=== PATIENT | male | born 1955 | race Caucasian/White ===

== ENCOUNTER → 2021-05-14 08:40 | Outpatient (BNVA) | payer SELFPAY | PROVIDERS: Family Provider Nurse Practitioner; Visit Provider Nurse Practitioner | DX: Z01.89 Encounter for other specified special examinations (principal) ==

== ENCOUNTER → 2021-11-05 08:41 | Outpatient (BNVA) | payer SELFPAY | PROVIDERS: Family Provider Nurse Practitioner; PCP Nurse Practitioner; Visit Provider Dermatology | DX: Z01.89 Encounter for other specified special examinations (principal) ==

== ENCOUNTER → 2022-05-06 08:10 | Outpatient (BNVA) | payer SELFPAY | PROVIDERS: Family Provider Nurse Practitioner; PCP Dermatology; Visit Provider Dermatology | DX: Z01.89 Encounter for other specified special examinations (principal) ==

== ENCOUNTER → 2022-08-05 07:58 | Outpatient (BNVA) | payer SELFPAY | PROVIDERS: Family Provider Nurse Practitioner; PCP Nurse Practitioner; Referring Provider Dermatology; Visit Provider Dermatology | DX: Z01.89 Encounter for other specified special examinations (principal) ==

== ENCOUNTER → 2022-11-04 08:14 | Outpatient (BNVA) | payer SELFPAY | PROVIDERS: Family Provider Nurse Practitioner; PCP Nurse Practitioner; Referring Provider Dermatology; Visit Provider Dermatology | DX: Z01.89 Encounter for other specified special examinations (principal) ==

== ENCOUNTER 2023-01-30 09:45 | Outpatient (CLI) | payer MEDICARE, OTHER, SELFPAY ==
--- NOTE | 2023-01-30 10:45 | CT_ITS ---
WS: [id number] LDCT LUNG CANCER SCREENING TECHNIQUE: Noncontrast CT of the chest with coronal and sagittal reformatted images. CLINICAL INFORMATION: Z87.891 - Personal history of nicotine dependence COMPARISON: None. DLP: 81.51 mGy.cm DIvol: Mean CTDIvol: 1.60 (mGy) All CT scans at [facility] use at least one of these dose optimization techniques: automat ed exposure control; mA and/or kV adjustment per patient size (includes targeted exams where dose is matched to clinical indication); or iterative reconstruction. FINDINGS: Tiny noncalcified 3 mm nodule LEFT upper lobe. Aortic calcification. Coronary calcification. Normal thyroid gland. Numerous slightly prominent media stinal lymph nodes. Calcified subcarinal lymph nodes. Numerous prominent axillary lymph nodes bilate rally nonspecific. Adrenal glands are normal. Hepatomegaly and splenomegaly. Small esophageal hiatal hernia. Cholelithia sis. Retrocrural enlarged lymph nodes. Small esophageal hiatal hernia. A few calcified granulomas. No acute pulmonary infiltrates. Partially visualized suggestion of enlarged lymph nodes in the upper ab domen. CT/CT lung screening [id number] IMPRESSION: Enlarged bilateral axillary with numerous prominent anterior medias tinal lymph nodes. Partially visualized prominent lymph nodes in the lower neck . Enlarged retrocrural lymph nodes and partially visualized lymphadenopathy upp er abdomen. Findings are nonspecific but neoplasm not excluded. Recommend furth er evaluation with contrast enhanced CT chest abdomen pelvis and recommend juliana elation with history of malignancy. Consider lymphoma. LUNG-RADS: 2S-Benign Appearance or Behavior with Significant Findings FOLLOW UP: 12 Month: Continue annual screening with LDCT
== END 2023-01-30 09:46 | disposition home or self-care (01) ==
PROVIDERS: PCP Nurse Practitioner; Visit Provider Nurse Practitioner
DX: Z12.2 Encounter for screening for malignant neoplasm of respiratory organs (principal); Z87.891 Personal history of nicotine dependence
CPT/HCPCS: 71271

== ENCOUNTER 2023-02-26 06:34 | Outpatient (CLI) | payer MEDICARE, OTHER, SELFPAY ==
[2023-02-26] MEDS: iohexol 350 mg/mL 100 mL Btl PO (07:14)
[2023-02-26] MEDS: iohexol 350 mg/mL 500 mL Btl (per mL) IV (07:41)
--- NOTE | 2023-02-26 08:00 | CTR_ITS ---
PROCEDURE INFORMATION: Exam: CT Chest With Contrast; Diagnostic Exam date and time: 02/26/2023 7:53 AM Age: 67 years old Clinical indication: Abnormal findings; Abnormal radiologic finding of the abdomen; Radiologic exam and body structure: CT lung screening [id number] 01/30/23; Other: Enlarged lymph nodes; Patient HX: F/u from lung screen with enlarged axillary and mediastinal lymph nodes. ; Additional info: R93.89 - abnormal findings on diagnostic imaging of other. . . TECHNIQUE: Imaging protocol: Diagnostic computed tomography of the chest with contrast. Radiation optimization: All CT scans at this facility use at least one of these dose optimization techniques: automated exposure control; mA and/or kV adjustment per patient size (includes targeted exams where dose is matched to clinical indication); or iterative reconstruction. Contrast material: OMNI 350; Contrast volume: 100 ml; Contrast route: INTRAVENOUS (IV); REPORTING DATA: Count of CT and Cardiac NM exams in prior 12 months: This patient has received [address] and 0 known cardiac nuclear medicine studies in the 12 months prior to the current study. COMPARISON: CT lung screening [id number] 01/30/2023 9:57 AM RADIATION DOSE METRICS: Total DLP (mGy-cm): 977.88 FINDINGS: Trachea: The trachea is midline. Lungs: Normal lung volumes. Unchanged right apical small calcified granulomas are seen. Unchanged minimal left apical pleuroparenchymal scarring is seen. No regions of consolidation or ground-glass opacity. No interlobular septal thickening or honeycombing seen to suggest interstitial lung disease on CT. Unchanged 0.3 x 0.3 cm left upper lobe noncalcified nodule (series 4, image 23). Recommend follow-up per Fleischner society recommendations. Pleural spaces: No pneumothorax. No pleural effusion. Heart: The heart size is normal. Severe coronary arterial atherosclerotic vascular calcifications are seen. No pericardial effusion. Lymph nodes: Some unchanged subcentimeter prominent prevascular lymph nodes are seen. Unchanged subcentimeter pretracheal and right paratracheal lymph nodes are seen. Calcified subcarinal and left hilar lymph nodes are seen, representing old granulomatous disease. Enlarged right hilar 1.3 x 1.6 cm lymph node. Enlarged bilateral axillary lymph nodes are seen, the largest measuring 1.8 x 1.3 cm. Prominent left subpectoral lymph nodes are seen. Vasculature: Unremarkable. No aortic aneurysm. Bones/joints: No acute osseous abnormality seen. Soft tissues: Unremarkable. REFERENCES: For patients at low risk (minimal or absent history of smoking and of other known risk factors), no routine follow-up is indicated. For patients at high risk (history of smoking or of other known risk factors), consider optional CT Chest at 12 months. (Reference: Amadou) PROCEDURE INFORMATION: Exam: CT Abdomen And Pelvis With Contrast Exam date and time: 02/26/2023 7:53 AM Age: 67 years old Clinical indication: Abnormal findings; Abnormal radiologic finding of the abdomen; Radiologic exam and body structure: CT lung screening [id number] 01/30/23; Other: Enlarged lymph nodes; Patient HX: F/u from lung screen with enlarged axillary and mediastinal lymph nodes. ; Additional info: R93.89 - abnormal findings on diagnostic imaging of other. . . TECHNIQUE: Imaging protocol: Computed tomography of the abdomen and pelvis with contrast. Radiation optimization: All CT scans at this facility use at least one of these dose optimization techniques: automated exposure control; mA and/or kV adjustment per patient size (includes targeted exams where dose is matched to clinical indication); or iterative reconstruction. Contrast material: OMNI 350; Contrast volume: 100 ml; Contrast route: INTRAVENOUS (IV); REPORTING DATA: Count of CT and Cardiac NM exams in prior 12 months: This patient has received [address] and 0 known cardiac nuclear medicine studies in the 12 months prior to the current study. COMPARISON: CT lung screening [id number] 01/30/2023 9:57 AM RADIATION DOSE METRICS: Total DLP (mGy-cm): 977.88 FINDINGS: Liver: Normal liver attenuation. Unchanged caudal right hepatic lobe/segment VII subcapsular low-attenuation 0.5 x 0.7 cm lesion is seen. No further follow-up is necessary per ACR recommendations. No mass. Gallbladder and bile ducts: Gallbladder not distended 1.6 x 1 cm calcified gallstone. No biliary ductal dilatation. Pancreas: Unremarkable CT appearance of the pancreatic parenchyma. No ductal dilatation. Spleen: There is splenomegaly with the spleen measuring 19 cm in length. The parenchyma appears normal.Some punctate calcified granulomas are seen. Adrenal glands: Normal CT appearance of the adrenals. No mass. Kidneys and ureters: Normal enhancement of the kidneys. Right kidney lower pole exophytic simple 1.3 x 1.2 cm cyst. Some other 0.2-0.5 cm bilateral renal cysts incidentally seen. Right kidney lower pole 0.4 x 0.2 cm calculus. Left kidney mid zone 0.1 x 0.2 cm calculi. Dilated bilateral renal pelves. No ureterectasis or ureteral calculi. Stomach and bowel: The contrast filled stomach is not completely distended with relative mild to moderate gastric body fold prominence. Tiny hiatal hernia is seen. The contrast opacified small bowel loops appear unremarkable. The noncontrast opacified loops of colon show mild to moderate constipation. Colonic diverticulosis is seen, severe in the sigmoid colon region. No CT evidence of diverticulitis. Appendix: No CT evidence of appendicitis. Intraperitoneal space: No abdominal ascites. No free air. Some benign phleboliths seen in the pelvis. Vasculature: Moderate to severe atherosclerotic vascular calcifications with calcifications at the origins of the mesenteric and renal arteries. Mild bilateral renal artery stenoses. Patent mesenteric arteries. [id number] bilateral iliac region stenoses. Assessment limited. The inferior vena cava and portal vein regions appear unremarkable. Patent splenic vein is seen. Lymph nodes: Enlarged gastrohepatic ligament, celiac axis, periportal, aortocaval, left para-aortic and mesentery lymph nodes are seen. The largest lymph node measures 1.5 x 2.9 cm (series 5, images 24 to 38). Enlarged iliac chain lymph nodes are also seen, the largest measuring 1 x 1 cm. Enlarged bilateral inguinal lymph nodes are seen, the largest measuring 1.5 x 1 cm. Urinary bladder: No bladder debris. No wall thickening. Reproductive: The prostate demonstrates mild nonspecific enlargement. The seminal vesicles are normal. Recommend correlation with clinical exam findings and PSA level assessment. Bones/joints: No acute osseous abnormality seen. Small degenerative osteophytes of the lumbar spine are seen. Moderate bilateral sacroiliac joint and mild symphysis pubis degenerative changes. Soft tissues: Unremarkable. CT/CT chest abdpel w/*[id number] IMPRESSION: 1. Enlarged right hilar lymph node with some nonspecific prominent mediastinal lymph nodes. Enlarged axillary lymph nodes. 2. Unchanged 0.3 x 0.3 cm left upper lobe noncalcified nodule. Recommend follow-up per Fleischner society recommendations. 3. Severe coronary arterial atherosclerotic vascular calcifications. IMPRESSION: 1. Marked splenomegaly, as noted above. 2. Extensive abdominal and pelvic lymphadenopathy, as noted above. Recommend correlation with clinical history. This can be seen with lymphoma, leukemia or metastatic disease. 3. Gallstone. 4. Punctate bilateral intrarenal calculi. No ureteral calculi seen. 5. Other chronic findings, as noted above. COMMENTS: Consistent with the [employer]'s Incidental Findings Committee white paper (J Am Berenice Radiol 2018): Any incidental renal lesion less than 1 cm or classified as too small to characterize, or any incidental cystic renal lesion characterized as simple-appearing, is likely benign. No follow-up imaging is recommended for these lesions per consensus recommendations based on imaging criteria.
== END 2023-02-26 06:35 | disposition home or self-care (01) ==
LOC: RAD 06:36
PROVIDERS: PCP Nurse Practitioner; Visit Provider Nurse Practitioner
DX: R93.89 Abnormal findings on diagnostic imaging of other specified body structures (principal); K80.20 Calculus of gallbladder without cholecystitis without obstruction; R16.1 Splenomegaly, not elsewhere classified; N20.0 Calculus of kidney; R59.1 Generalized enlarged lymph nodes
CPT/HCPCS: 71260; 74177; Q9967

== ENCOUNTER 2023-03-27 07:17 | Outpatient (CLI) | payer MEDICARE, OTHER, SELFPAY ==
--- NOTE | 2023-03-27 08:30 | US_ITS ---
WS: [id number] ULTRASOUND-GUIDED RIGHT INGUINAL LYMPH NODE BIOPSY CLINICAL INFORMATION: R59.9 - Enlarged lymph nodes, unspecified COMPARISON: February 26, 2023 FINDINGS: The procedure including risks, benefits, and complications were discussed with the patient who agreed to proceed. Using sterile technique patient was prepped and draped in the usual sterile fashion. Aft er 1% lidocaine utilizing real-time ultrasound guidance [id number] cores with a Temno needle were ob tained. These samples were somewhat sparse therefore 14-gauge achieve needle was selected. Next four 14-gauge cores were obtained of the RIGHT inguinal lymph node.No immediate complications. Samples we re placed in RPMI and formalin. Patient remained in the ultrasound Suite 10 minutes postprocedure to assess for hematoma and bleeding . No significant hematoma or active bleeding at 10 to 15 minutes. US/US biopsy lymph node [id number] IMPRESSION: 1. Uncomplicated ultrasound-guided RIGHT inguinal lymph node biopsy. 2. No immediate complications. 3. Pathology is pending.
[2023-03-31 07:27] LABS: Lymphoma Profile (BBPL) See Report
== END 2023-03-27 07:18 | disposition home or self-care (01) ==
LOC: RAD 07:22
PROVIDERS: PCP Nurse Practitioner; Visit Provider Nurse Practitioner
DX: R59.9 Enlarged lymph nodes, unspecified (principal)
CPT/HCPCS: 38505; 76942; 88184; 88185; 88305; 88342

== ENCOUNTER → 2023-04-02 10:19 | Outpatient (BNVA) | payer MEDICARE, OTHER, SELFPAY | PROVIDERS: PCP Nurse Practitioner; Visit Provider Internal Medicine Cardiovascular Disease | DX: I25.10 Atherosclerotic heart disease of native coronary artery without angina pectoris (principal); I25.84 Coronary atherosclerosis due to calcified coronary lesion; Z78.9 Other specified health status; E78.5 Hyperlipidemia, unspecified; I10 Essential (primary) hypertension; Z87.891 Personal history of nicotine dependence; C85.90 Non-Hodgkin lymphoma, unspecified, unspecified site | CPT/HCPCS: 99203 ==

== ENCOUNTER 2023-04-15 07:32 | Oncology outpatient (recurring) (ONCR) | payer MEDICARE, OTHER, SELFPAY ==
[2023-04-15 08:48] LABS: Basophils % 0.7 %; Eosinophils # 0.1 10^3/uL (0.0-0.8); Eosinophils % 2.4 %; Hematocrit 35.9 % (42.0-52.0); Hemoglobin 11.4 g/dL (11.7-16.6); Lymphocytes # 1.1 10^3/uL (0.8-4.8); Lymphocytes % 26.2 %; Mean Corpuscular HGB Conc 31.8 g/dL (30.0-36.0); Mean Corpuscular Hemoglobin 26.8 pg (28.0-34.0); Mean Corpuscular Volume 84.3 fl (80-94); Mean Platelet Volume 8.5 fL (7.4-10.4); Monocytes # 0.3 10^3/uL (0.2-0.9); Neutrophils # 2.59 10^3/uL (1.8-7.7); Nucleated Red Blood Cells % 0 %; Platelet Count 148 10^3/cmm (130-400); Red Blood Count 4.26 10^6/uL (4.1-5.3); Red Cell Distribution Width 13.4 % (12.1-15.1); White Blood Count 4.1 10^3/uL (4.0-10.0)
[2023-04-15 09:03] LABS: Alanine Aminotransferase 8 U/L (0-41); Albumin Level 4.1 g/dL (3.5-5.2); Alkaline Phosphatase 97 U/L (40-130); Anion Gap 10.5 (5-19); Aspartate Amino Transferase 13 U/L (0-40); Blood Urea Nitrogen 14 mg/dL (8-23); Calcium 9.3 mg/dL (8.5-10.5); Carbon Dioxide 31 mmol/L (22-29); Chloride 104 mmol/L (98-107); Globulin 2.6 g/dL (1.3-4.6); Glucose 90 mg/dL (65-115); LAB Peripheral Smear Sent for Review; Lactate Dehydrogenase 154 U/L (135-225); Osmolality Calculated 292 mOsm/kg (285-295); Potassium 4.5 mmol/L (3.5-5.1); Sodium 141 mmol/L (136-145); Total Bilirubin 0.3 mg/dL (0.15-1.2); Total Protein 6.7 g/dL (6.6-8.7)
[2023-04-15 17:00] LABS: Iron 40 ug/dL (59-158); Percent Saturation 13.4 % (20-50); Total Iron Binding Capacity 298 mcg/dl; Unsaturated Iron Binding 258 ug/dL (112-347)
== END 2023-04-22 23:59 | disposition home or self-care (01) ==
PROVIDERS: PCP Nurse Practitioner; Visit Provider Internal Medicine Medical Oncology
DX: C82.18 Follicular lymphoma grade II, lymph nodes of multiple sites (principal); R16.0 Hepatomegaly, not elsewhere classified; Z87.891 Personal history of nicotine dependence
CPT/HCPCS: 80053; 83540; 83550; 83615; 85025; 99205

== ENCOUNTER → 2023-04-27 08:59 | Outpatient (BNVA) | payer MEDICARE, OTHER, SELFPAY | PROVIDERS: PCP Nurse Practitioner; Visit Provider Nurse Practitioner | DX: E78.5 Hyperlipidemia, unspecified (principal); K58.0 Irritable bowel syndrome with diarrhea; I10 Essential (primary) hypertension; R35.0 Frequency of micturition | CPT/HCPCS: 81000 ==

== ENCOUNTER 2023-05-02 05:40 | Outpatient (CLI) | payer MEDICARE, OTHER, SELFPAY ==
--- NOTE | 2023-05-02 11:30 | PETR_ITS ---
PROCEDURE INFORMATION: Exam: PET/CT Skull Base to Mid-thigh Exam date and time: 05/02/2023 12:53 PM Age: 67 years old Clinical indication: Condition or disease; Primary cancer: Lymphoma; Initial oncological staging assessment; Additional info: Initial staging. History of ultrasound-guided right inguinal lymph node biopsy 03/27/2023. LABS AND CLINICAL REPORTS: Glucose: 124 mg/dl Treatment strategy for malignancy (PET staging): Initial Staging (PI) TECHNIQUE: Imaging protocol: Following at least four-hour fasting and following the injection of radiopharmaceutical, low dose CT images were obtained. Then, PET images were obtained. Attenuation corrected images were constructed using the CT scan. Fused images of PET and CT were reviewed. The standardized uptake values (SUV) reported below are maximum values within a region of interest, expressed in gm/ml. Exam includes orbital meatal line to mid-thigh. Radiopharmaceutical: 11.18 mCi F-18 FDG (Fluorodeoxyglucose), IV. Time of imaging post radiopharmaceutical administration: 1 hour Injection site: Right antecubital COMPARISON: CT chest, abdomen and pelvis 02/26/2023 7:53 AM FINDINGS: Brain: Visualized brain has normal physiologic uptake. Pharynx: Mild uptake in the bilateral palatine tonsillar regions is likely physiologic, SUV max 5.9 on the right and 5.1 on the left. Larynx: No abnormal uptake. Lungs, pleura and trachea: No abnormal uptake. Bilateral pulmonary calcified granulomas are present. Unchanged size of a non radiotracer avid 3 mm left upper lobe nodule on series 3, image 53. Heart: Normal physiologic uptake. Mediastinal space: No abnormal uptake. Liver: No abnormal uptake. Gallbladder and bile ducts: No abnormal uptake. A stone in the gallbladder is noted. Pancreas: No abnormal uptake. Spleen: Moderate similar splenomegaly is noted. Calcified granulomas in the spleen are present. Splenic uptake: SUV max 3.9. Adrenal glands: No abnormal uptake. Kidneys and ureters: Normal physiologic uptake. An exophytic non radiotracer avid simple appearing right renal inferior pole cyst is better characterized on the comparison CT measuring 1.3 cm in diameter. Small calculi in both kidneys are noted. A simple appearing exophytic cyst arises from the inferior pole of the left kidney without uptake, SUV max 2.0. No hydronephrosis. Stomach and bowel: No abnormal uptake. There are scattered colonic diverticula. Urinary bladder: A moderately diffusely thick-walled appearance of the urinary bladder is noted without definite elevated uptake. Assessment of the bladder can be limited by PET-CT. Reproductive: Moderate enlargement of the prostate gland without elevated uptake. Vasculature: No abnormal uptake. Diffuse atherosclerotic changes are noted including within the coronary arteries. Lymph nodes: A radiotracer avid lymph node posterior to the left clavicle measuring 2.3 x 1.1 cm on series 3, image 40 is noted, SUV max 5.9. Mildly prominent bilateral subpectoral and axillary lymph nodes are noted, some of which are radiotracer avid. For example, a dominant left axillary lymph node measures 3.5 x 0.7 cm on series 3, image 56, SUV max 7.4. Scattered mildly prominent mediastinal and right hilar lymph nodes are identified, some of which are radiotracer avid. For example, a lymph node anterior to the proximal right mainstem bronchus measuring approximately 1.4 cm in diameter on series 3, image 59 is noted, SUV max 4.4. Non radiotracer avid calcified left hilar lymph nodes are present. Prominent radiotracer avid lymph nodes within the abdomen are noted involving the retroperitoneal periaortic spaces, nicky hepatis, and portacaval region. For example, a cluster of left periaortic retroperitoneal lymph nodes on series 3, image 100 demonstrates an overall measurement of 4.7 by 1.8 cm, SUV max 6.2. Clustered lymph nodes in the region of the nicky hepatis with an overall measurement of 3.6 x 3.0 cm on series 3, image 97 is noted, SUV max 5.0. Small retrocrural mildly radiotracer avid lymph nodes on the right are noted for example measuring 1.3 x 0.6 cm on series 3, image 94, SUV max 3.2. Several prominent mesenteric lymph nodes are radiotracer avid for example in the anterior left abdomen measuring 3.9 x 2.0 cm on series 3, image 111, SUV max 16.0. Mildly prominent bilateral external iliac chain, inguinal and groin region lymph nodes are identified for example in the right groin region on series 3, image 170 measuring 2.5 x 1.7 cm, SUV max 12.8. These lymph nodes appears similar in size compared with 02/26/2023. Bones/joints: No abnormal uptake in the visualized axial and appendicular skeleton. Mild degenerative changes in the spine are noted. Soft tissues: No abnormal uptake. METRICS: Mediastinal blood pool: SUV max 2.0 Liver uptake: SUV max 3.3 [facility] [id number] IMPRESSION: 1. Lymphadenopathy in the chest, abdomen and pelvis appears similar compared with the prior CT, several of which demonstrate elevated uptake consistent with history of lymphoma. 2. Splenomegaly persists. Uptake in the spleen is slightly greater than that of background liver uptake which may be indicative of diffuse neoplastic involvement. 3. Unchanged non radiotracer avid small left upper lobe nodule. Assessment of small nodules can be limited by PET-CT. 4. Non radiotracer avid simple appearing bilateral renal cysts, better characterized on the comparison CT. 5. A thick-walled appearance of the urinary bladder is noted which may be related to cystitis or benign hypertrophy in the setting of an enlarged prostate gland. 6. Additional nonurgent findings as detailed above.
== END 2023-05-02 05:41 | disposition home or self-care (01) ==
LOC: RAD 05-04 05:40
PROVIDERS: PCP Nurse Practitioner; Visit Provider Internal Medicine Medical Oncology
DX: C82.18 Follicular lymphoma grade II, lymph nodes of multiple sites (principal); R59.1 Generalized enlarged lymph nodes; R16.1 Splenomegaly, not elsewhere classified; R91.1 Solitary pulmonary nodule; Q61.02 Congenital multiple renal cysts; N32.89 Other specified disorders of bladder
CPT/HCPCS: 78815; A9552

== ENCOUNTER 2023-05-27 06:36 | Outpatient (CLI) | payer MEDICARE, OTHER, SELFPAY ==
--- NOTE | 2023-05-27 | ECG_ITS ---
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 Interpretive Statements NAME OF STUDY: LEXISCAN SESTAMIBI STRESS TEST INDICATION: Chest Pain RESULTS TO DR SCRUGGS PROCEDURE: At the baseline, the EKG revealed normal sinus rhythm with a rate of 61 bpm. Right bundle branch block pattern. Normal ST Ts.. The baseline heart was 62 bpm with a blood pressue of 133/67 mm of Hg Lexiscan was infused over a period of 20 seconds. A total of 0.4 milligrams of Lexiscan was infused. The stress phase was continued for a total of 5 minutes. Heart rate at the end of the stress phase was 75 bpm with a blood pressure 120/57 mm of Hg. The EKG at the peak infusion revealed no significant changes. Sestamibi was injected 20 seconds after the Lexiscan infusion. Heart rate at the end of the recovery phase was 65 bpm with a blood pressure of 135/63 mm of Hg. CONCLUSION: 1. No significant EKG changes with the LexiScan infusion 2. No LexiScan induced chest pain or cardiac arrhythmia 3. Normal blood pressure and heart rate response 4. Sestamibi/sestamibi perfusion scan pending; see separate report. Electronically Signed On 05-28-2023 17:58:30 CDT by Edwige Castellanos M.D. [id number]
[2023-05-27 06:40] VITALS: BMI 27.2
--- NOTE | 2023-05-27 06:41 | NMCV_ITS ---
NM renee perf SPECT r/s* [id number] Juan Antonio Deleon Age: 67 Gender: M : 1955 Exam Date: 05/27/2023 07:40 Ordering Phys: Derian Lopez MD ([email or web address]) Technologist: KELLEN Benton Exam Location: [facility] Indications: Chest Pain STRESS TEST [facility] IMAGE PROTOCOL Rest/Stress 1 Lexiscan Day Radiopharmaceutical Dose (mCi) Administration Site Administered by Rest: Tc-99m 10.9 IV KELLEN Benton Sestamibi Stress:Tc-99m 32.9 IV KELLEN Aguilar Sestamibi Rest: 27-May-2023 60 Discovery 630 Stress: 27-May-2023 30 Discovery 630 0.4mg Lexiscan. Images obtained in supine and prone position. SPECT RESULTS Technical Quality: Excellent Raw Data Analysis: Adequate Image Corrections: No attenuation or motion correction applied Summed Stress Score: 4 Summed Rest Score: 3 Summed Difference Score: 1 PERFUSION FINDINGS Small to moderate area of moderately decreased tracer uptake in the mid and apical inferior wall region with a subtle area of reversibility in the mid inferior region FUNCTIONAL RESULTS (calculated via Gated SPECT) Stress Image LV EF (%): 60 Stress EDV (mL):131 TID: 0.85 Stress ESV (mL):52 FUNCTIONAL FINDINGS: Segmental wall motion analysis revealing no gross wall motion normalities IMPRESSIONS 1. Myocardial perfusion imaging revealing small to moderate area of moderately decreased tracer uptake in the inferior wall region with a subtle area of reversibility suggesting myocardial scarring in the distribution of the right coronary artery with a very small area of ischemia. 2. Normal LV ejection fraction 60%. 3. LV wall motion analysis revealing no gross wall motion abnormalities. 4. The LV volume, upper limit of normal No similar previous studies are available for comparison Dr Edwige Castellanos MD [facility] (Electronically Signed) Final Date: 27 May 2023 17:38 S
[2023-05-27] MEDS: regadenoson 0.4 Mg/5 ml Syringe IVP (08:19)
[2023-05-27 08:34] VITALS: BP 132/74; PULSE 72
== END 2023-05-27 06:37 | disposition home or self-care (01) ==
LOC: CDL 06:37
PROVIDERS: PCP Nurse Practitioner; Visit Provider Internal Medicine Cardiovascular Disease
DX: R07.9 Chest pain, unspecified (principal)
CPT/HCPCS: 36415; 78452; 93017; 96374; A9500; J2785

== ENCOUNTER → 2023-06-01 09:15 | Outpatient (BNVA) | payer MEDICARE, OTHER, SELFPAY | PROVIDERS: PCP Nurse Practitioner; Visit Provider Nurse Practitioner Family | DX: K57.92 Diverticulitis of intestine, part unspecified, without perforation or abscess without bleeding (principal); E78.5 Hyperlipidemia, unspecified; R10.31 Right lower quadrant pain; R10.32 Left lower quadrant pain; R19.7 Diarrhea, unspecified; C82.18 Follicular lymphoma grade II, lymph nodes of multiple sites; N40.0 Benign prostatic hyperplasia without lower urinary tract symptoms; I10 Essential (primary) hypertension | CPT/HCPCS: 80053; 80061; 83615 ==

== ENCOUNTER 2023-06-02 10:22 | Oncology outpatient (recurring) (ONCR) | payer MEDICARE, OTHER, SELFPAY | END 2023-06-22 23:59 | disposition home or self-care (01) | PROVIDERS: PCP Nurse Practitioner; Visit Provider Internal Medicine Medical Oncology | DX: C82.18 Follicular lymphoma grade II, lymph nodes of multiple sites (principal) | CPT/HCPCS: 99214 ==

== ENCOUNTER 2023-07-15 14:00 | Oncology outpatient (recurring) (ONCR) | payer MEDICARE, OTHER, SELFPAY ==
[2023-06-30 09:25] VITALS: BP 144/73; PULSE 74; RESP 16; TEMP 36.2; O2SAT 95
[2023-06-30 09:40] LABS: Eosinophils # 0.1 10^3/uL (0.0-0.8); Eosinophils % 2.9 %; Hematocrit 35.5 % (42.0-52.0); Hemoglobin 11.5 g/dL (11.7-16.6); Lymphocytes # 0.9 10^3/uL (0.8-4.8); Lymphocytes % 28.5 %; Mean Corpuscular HGB Conc 32.4 g/dL (30.0-36.0); Mean Corpuscular Hemoglobin 27.3 pg (28.0-34.0); Mean Corpuscular Volume 84.3 fl (80-94); Mean Platelet Volume 8.9 fL (7.4-10.4); Monocytes # 0.2 10^3/uL (0.2-0.9); Monocytes % 6.5 %; Neutrophils # 1.88 10^3/uL (1.8-7.7); Neutrophils % 60.8 %; Nucleated Red Blood Cells % 0 %; Platelet Count 111 10^3/cmm (130-400); Red Blood Count 4.21 10^6/uL (4.1-5.3); Red Cell Distribution Width 13.2 % (12.1-15.1); White Blood Count 3.1 10^3/uL (4.0-10.0)
[2023-06-30 10:09] LABS: Alanine Aminotransferase 6 U/L (0-41); Albumin Level 4.1 g/dL (3.5-5.2); Alkaline Phosphatase 100 U/L (40-130); Anion Gap 13.1 (5-19); Aspartate Amino Transferase 13 U/L (0-40); Blood Urea Nitrogen 18 mg/dL (8-23); Calcium 9.8 mg/dL (8.5-10.5); Carbon Dioxide 31 mmol/L (22-29); Chloride 102 mmol/L (98-107); Globulin 2.6 g/dL (1.3-4.6); Glomerular Filtration Rate 84.7 mL/min (90-130); Glucose 122 mg/dL (65-115); Iron 48 ug/dL (59-158); Lactate Dehydrogenase 134 U/L (135-225); Osmolality Calculated 295 mOsm/kg (285-295); Percent Saturation 16.7 % (20-50); Potassium 5.1 mmol/L (3.5-5.1); Sodium 141 mmol/L (136-145); Total Bilirubin 0.3 mg/dL (0.15-1.2); Total Iron Binding Capacity 287 mcg/dl; Total Protein 6.7 g/dL (6.6-8.7); Unsaturated Iron Binding 239 ug/dL (112-347)
== END 2023-07-23 23:59 | disposition home or self-care (01) ==
PROVIDERS: PCP Nurse Practitioner; Visit Provider Internal Medicine Medical Oncology
DX: Z53.9 Procedure and treatment not carried out, unspecified reason (principal)
CPT/HCPCS: 36415; 80053; 83540; 83550; 83615; 85025; 99214

== ENCOUNTER 2023-08-12 08:11 | Oncology outpatient (recurring) (ONCR) | payer MEDICARE, OTHER, SELFPAY ==
[2023-08-04 10:22] VITALS: BP 132/70; PULSE 64; RESP 16; TEMP 36.3; O2SAT 97
[2023-08-04 10:33] LABS: Basophils % 0.7 %; Eosinophils # 0.1 10^3/uL (0.0-0.8); Eosinophils % 2.1 %; Hematocrit 32.6 % (37-53); Lymphocytes # 0.9 10^3/uL (0.8-4.8); Lymphocytes % 30.8 %; Mean Corpuscular HGB Conc 31.9 g/dL (30-55); Mean Corpuscular Hemoglobin 26.7 pg (27-33); Mean Corpuscular Volume 83.6 fl (82-101); Mean Platelet Volume 8.6 fL (7.4-10.4); Monocytes # 0.2 10^3/uL (0.2-0.9); Monocytes % 7.3 %; Neutrophils # 1.68 10^3/uL (1.8-7.7); Neutrophils % 58.8 %; Nucleated Red Blood Cells % 0 %; Platelet Count 123 10^3/cmm (157-399); Red Cell Distribution Width 13.7 % (12.1-15.1); White Blood Count 2.86 10^3/uL (3.29-11.43)
[2023-08-04 11:03] LABS: Alanine Aminotransferase 9 U/L (0-41); Albumin Level 4.3 g/dL (3.5-5.2); Alkaline Phosphatase 83 U/L (40-130); Anion Gap 12.7 (5-19); Aspartate Amino Transferase 12 U/L (0-40); Blood Urea Nitrogen 16 mg/dL (8-23); Calcium 9.2 mg/dL (8.5-10.5); Carbon Dioxide 31 mmol/L (22-29); Chloride 104 mmol/L (98-107); Globulin 2.4 g/dL (1.3-4.6); Glomerular Filtration Rate 113.2 mL/min (90-130); Glucose 110 mg/dL (65-115); Iron 42 ug/dL (59-158); Lactate Dehydrogenase 118 U/L (135-225); Osmolality Calculated 298 mOsm/kg (285-295); Percent Saturation 14.1 % (20-50); Potassium 4.7 mmol/L (3.5-5.1); Sodium 143 mmol/L (136-145); Total Bilirubin 0.3 mg/dL (0.15-1.2); Total Iron Binding Capacity 296 mcg/dl; Total Protein 6.7 g/dL (6.6-8.7); Unsaturated Iron Binding 254 ug/dL (112-347)
[2023-08-10 08:06] VITALS: BMI 26.2
[2023-08-10 08:27] LABS: Basophils % 0.7 %; Eosinophils # 0.1 10^3/uL (0.0-0.8); Eosinophils % 3.1 %; Hematocrit 34.1 % (37-53); Lymphocytes # 0.8 10^3/uL (0.8-4.8); Lymphocytes % 26.4 %; Mean Corpuscular Hemoglobin 26.8 pg (27-33); Mean Platelet Volume 8.6 fL (7.4-10.4); Monocytes # 0.2 10^3/uL (0.2-0.9); Monocytes % 6.8 %; Neutrophils # 1.83 10^3/uL (1.8-7.7); Neutrophils % 62.7 %; Nucleated Red Blood Cells % 0 %; Platelet Count 129 10^3/cmm (157-399); Red Blood Count 4.06 10^6/uL (3.85-5.65); Red Cell Distribution Width 13.8 % (12.1-15.1); White Blood Count 2.92 10^3/uL (3.29-11.43)
[2023-08-10 08:45] LABS: Alanine Aminotransferase 9 U/L (0-41); Albumin Level 4.2 g/dL (3.5-5.2); Alkaline Phosphatase 94 U/L (40-130); Anion Gap 10.7 (5-19); Aspartate Amino Transferase 14 U/L (0-40); Blood Urea Nitrogen 14 mg/dL (8-23); Carbon Dioxide 30 mmol/L (22-29); Chloride 102 mmol/L (98-107); Globulin 2.4 g/dL (1.3-4.6); Glucose 92 mg/dL (65-115); Lactate Dehydrogenase 133 U/L (135-225); Osmolality Calculated 288 mOsm/kg (285-295); Potassium 3.7 mmol/L (3.5-5.1); Sodium 139 mmol/L (136-145); Total Bilirubin 0.2 mg/dL (0.15-1.2); Total Protein 6.6 g/dL (6.6-8.7)
[2023-08-10] MEDS: sodium chloride 0.9% 250 ML 75 ML IV (08:46)
[2023-08-10] MEDS: ferric carboxy (IVPB) 750 MG in sodium chloride 0.9% (100 ml) 100 ML 345 MG IV (08:56)
[2023-08-11] VITALS (13 sets, daily range): BP systolic 113–158; BP diastolic 56–80; PULSE 51–71; RESP 16–17; TEMP 35.7–36.5; O2SAT 92–97; BMI 26.4
[2023-08-11] MEDS: sodium chloride 0.9% 250 ML 75 ML IV (09:15)
[2023-08-11] MEDS: acetaminophen 325 mg Tablet 650 MG PO (09:18)
[2023-08-11] MEDS: diphenhydrAMINE 50 mg/mL SDV 1mL 25 MG IVP (09:30)
[2023-08-11] MEDS: ondansetron 2 mg/ML SDV 2 mL 8 MG IVP (09:35)
[2023-08-11] MEDS: diphenhydrAMINE 50 mg/mL SDV 1mL IVP (13:06)
[2023-08-11] MEDS: sodium chloride 0.9% 1,000 ML 999 ML IV (13:07)
[2023-08-11] MEDS: methylPREDNISolone sod succ 125 mg SDV IVP (13:11)
[2023-08-12] MEDS: palonosetron 0.25 mg/5 mL SDV IVP (09:46)
[2023-08-12] MEDS: sodium chloride 0.9% 250 ML 75 ML IV (09:46)
[2023-08-12] MEDS: LORazepam 2 mg/mL INJ 1 mL 1 MG IVP (09:55)
[2023-08-12 11:30] VITALS: BP 124/57; PULSE 62; RESP 16; TEMP 35.7; O2SAT 98
[2023-08-13 16:24] LABS: Galactose-alpha-1,3 IgE 0.39 kU/L (<0.10)
[2023-08-14 17:45] LABS: Beef (27) IgE <0.10 kU/L; Beef Class 0; Lamb (F88) IgE <0.10 kU/L; Lamb Class 0; Pork (F26) IgE <0.10 kU/L; Pork Class 0
== END 2023-08-12 23:59 | disposition home or self-care (01) ==
PROVIDERS: PCP Nurse Practitioner; Visit Provider Internal Medicine Medical Oncology
DX: D50.8 Other iron deficiency anemias (principal)
CPT/HCPCS: 36415; 80053; 83540; 83550; 83615; 85025; 86003; 86008; 96365; 96367; 96375; 96409; 96413; 96415; 96417; 99214; J1100; J1200; J1439; J2060; J2405; J2469; J2930; J7030; J7040; J7050; J9034; Q5115

== ENCOUNTER 2023-08-17 08:30 | Oncology outpatient (recurring) (ONCR) | payer MEDICARE, OTHER, SELFPAY ==
[2023-08-17 08:40] VITALS: BP 133/62; PULSE 69; RESP 16; TEMP 36.3; O2SAT 95
[2023-08-17] MEDS: ferric carboxy (IVPB) 750 MG in sodium chloride 0.9% (100 ml) 100 ML 345 MG IV (09:18)
[2023-08-17 09:50] VITALS: BP 108/50; PULSE 61; RESP 16; TEMP 36.3; O2SAT 93
== END 2023-08-22 23:59 | disposition home or self-care (01) ==
PROVIDERS: PCP Nurse Practitioner; Visit Provider Internal Medicine Medical Oncology
DX: D50.8 Other iron deficiency anemias (principal)
CPT/HCPCS: 96365; J1439

== ENCOUNTER 2023-09-08 08:00 | Oncology outpatient (recurring) (ONCR) | payer MEDICARE, OTHER, SELFPAY ==
[2023-08-24 12:58] VITALS: BP 136/64; PULSE 62; TEMP 36.3; O2SAT 96
[2023-08-24 13:14] LABS: Basophils # 0.1 10^3/uL (0.0-0.1); Basophils % 1.1 %; Eosinophils # 0.1 10^3/uL (0.0-0.8); Hematocrit 33.7 % (37-53); Lymphocytes # 0.4 10^3/uL (0.8-4.8); Lymphocytes % 8.8 %; Mean Corpuscular HGB Conc 32.6 g/dL (30-55); Mean Corpuscular Hemoglobin 27.4 pg (27-33); Mean Corpuscular Volume 83.8 fl (82-101); Mean Platelet Volume 8.7 fL (7.4-10.4); Monocytes # 0.4 10^3/uL (0.2-0.9); Monocytes % 8.8 %; Neutrophils % 77.7 %; Nucleated Red Blood Cells % 0 %; Platelet Count 135 10^3/cmm (157-399); Red Blood Count 4.02 10^6/uL (3.85-5.65); Red Cell Distribution Width 15.3 % (12.1-15.1); White Blood Count 4.64 10^3/uL (3.29-11.43)
[2023-08-24 13:38] LABS: Alanine Aminotransferase 9 U/L (0-41); Albumin Level 4.2 g/dL (3.5-5.2); Alkaline Phosphatase 94 U/L (40-130); Anion Gap 10.3 (5-19); Aspartate Amino Transferase 14 U/L (0-40); Blood Urea Nitrogen 14 mg/dL (8-23); Calcium 8.8 mg/dL (8.5-10.5); Carbon Dioxide 30 mmol/L (22-29); Chloride 105 mmol/L (98-107); Globulin 2.3 g/dL (1.3-4.6); Glomerular Filtration Rate 135.2 mL/min (90-130); Glucose 95 mg/dL (65-115); Osmolality Calculated 292 mOsm/kg (285-295); Potassium 4.3 mmol/L (3.5-5.1); Sodium 141 mmol/L (136-145); Total Bilirubin 0.5 mg/dL (0.15-1.2); Total Protein 6.5 g/dL (6.6-8.7)
[2023-08-31 15:00] VITALS: BP 126/66; PULSE 64; RESP 16; TEMP 36.7; O2SAT 98
[2023-08-31 15:41] LABS: Basophils # 0.1 10^3/uL (0.0-0.1); Basophils % 1.6 %; Eosinophils # 0.2 10^3/uL (0.0-0.8); Eosinophils % 4.8 %; Hematocrit 33.6 % (37-53); Lymphocytes # 0.5 10^3/uL (0.8-4.8); Lymphocytes % 14.5 %; Mean Corpuscular HGB Conc 32.7 g/dL (30-55); Mean Corpuscular Volume 85.5 fl (82-101); Monocytes # 0.3 10^3/uL (0.2-0.9); Monocytes % 10.9 %; Neutrophils % 67.6 %; Nucleated Red Blood Cells % 0 %; Platelet Count 155 10^3/cmm (157-399); Red Blood Count 3.93 10^6/uL (3.85-5.65); Red Cell Distribution Width 16.1 % (12.1-15.1); White Blood Count 3.11 10^3/uL (3.29-11.43)
[2023-08-31 16:08] LABS: Alanine Aminotransferase 11 U/L (0-41); Alkaline Phosphatase 84 U/L (40-130); Anion Gap 10.4 (5-19); Aspartate Amino Transferase 12 U/L (0-40); Blood Urea Nitrogen 17 mg/dL (8-23); Calcium 8.5 mg/dL (8.5-10.5); Carbon Dioxide 29 mmol/L (22-29); Chloride 103 mmol/L (98-107); Globulin 2.2 g/dL (1.3-4.6); Glomerular Filtration Rate 113.2 mL/min (90-130); Glucose 106 mg/dL (65-115); Osmolality Calculated 288 mOsm/kg (285-295); Potassium 4.4 mmol/L (3.5-5.1); Sodium 138 mmol/L (136-145); Total Bilirubin 0.4 mg/dL (0.15-1.2); Total Protein 6.2 g/dL (6.6-8.7)
[2023-09-08 08:01] VITALS: BP 135/72; PULSE 71; RESP 16; TEMP 36.3; O2SAT 97
[2023-09-08 08:37] LABS: Basophils % 0.8 %; Eosinophils # 0.2 10^3/uL (0.0-0.8); Eosinophils % 5.6 %; Hematocrit 35.4 % (37-53); Lymphocytes # 0.5 10^3/uL (0.8-4.8); Lymphocytes % 13.1 %; Mean Corpuscular HGB Conc 33.6 g/dL (30-55); Mean Corpuscular Hemoglobin 28.5 pg (27-33); Mean Corpuscular Volume 84.9 fl (82-101); Monocytes # 0.3 10^3/uL (0.2-0.9); Monocytes % 8.9 %; Neutrophils # 2.53 10^3/uL (1.8-7.7); Neutrophils % 70.8 %; Nucleated Red Blood Cells % 0 %; Platelet Count 133 10^3/cmm (157-399); Red Blood Count 4.17 10^6/uL (3.85-5.65); Red Cell Distribution Width 15.9 % (12.1-15.1); White Blood Count 3.58 10^3/uL (3.29-11.43)
[2023-09-08 08:58] LABS: Alanine Aminotransferase 10 U/L (0-41); Albumin Level 4.1 g/dL (3.5-5.2); Alkaline Phosphatase 88 U/L (40-130); Anion Gap 11.3 (5-19); Aspartate Amino Transferase 12 U/L (0-40); Blood Urea Nitrogen 15 mg/dL (8-23); Calcium 8.7 mg/dL (8.5-10.5); Carbon Dioxide 28 mmol/L (22-29); Chloride 106 mmol/L (98-107); Glomerular Filtration Rate 135.2 mL/min (90-130); Glucose 125 mg/dL (65-115); Osmolality Calculated 296 mOsm/kg (285-295); Potassium 3.3 mmol/L (3.5-5.1); Sodium 142 mmol/L (136-145); Total Bilirubin 0.4 mg/dL (0.15-1.2); Total Protein 6.1 g/dL (6.6-8.7)
[2023-09-08] MEDS: acetaminophen 325 mg Tablet 650 MG PO (10:14)
[2023-09-08] MEDS: sodium chloride 0.9% 250 ML 75 ML IV (10:15)
[2023-09-08] MEDS: diphenhydrAMINE 50 mg/mL SDV 1mL 25 MG IVP (10:15)
[2023-09-08] MEDS: ondansetron 2 mg/ML SDV 2 mL 8 MG IVP (10:22)
[2023-09-08 10:45] VITALS: BP 108/56; PULSE 51; TEMP 36.3; O2SAT 98
[2023-09-08 11:15] VITALS: BP 98/48; PULSE 50; RESP 16; TEMP 36.6; O2SAT 99
[2023-09-08 11:33] LABS: Iron 83 ug/dL (59-158); Percent Saturation 33.4 % (20-50); Total Iron Binding Capacity 248 mcg/dl; Unsaturated Iron Binding 165 ug/dL (112-347)
[2023-09-08 11:47] LABS: Ferritin 1032 ng/mL (30-400)
[2023-09-08 11:50] VITALS: BP 116/59; PULSE 55; RESP 16; TEMP 36.4; O2SAT 97
[2023-09-08 15:15] VITALS: BP 125/60; PULSE 59; RESP 16; TEMP 36.2; O2SAT 94
== END 2023-09-08 23:59 | disposition home or self-care (01) ==
PROVIDERS: PCP Nurse Practitioner; Visit Provider Internal Medicine Medical Oncology
DX: Z51.11 Encounter for antineoplastic chemotherapy; C82.28 Follicular lymphoma grade III, unspecified, lymph nodes of multiple sites; D50.8 Other iron deficiency anemias; Z87.891 Personal history of nicotine dependence; C82.18 Follicular lymphoma grade II, lymph nodes of multiple sites
CPT/HCPCS: 36415; 80053; 82728; 83540; 83550; 85025; 96367; 96375; 96413; 96415; 96417; 99214; J1100; J1200; J2405; J7040; J7050; J9034; Q5115

== ENCOUNTER 2023-09-22 10:30 | Oncology outpatient (recurring) (ONCR) | payer MEDICARE, OTHER, SELFPAY ==
[2023-09-09 08:15] VITALS: BP 129/65; PULSE 67; RESP 16; TEMP 36.6; O2SAT 97
[2023-09-09] MEDS: sodium chloride 0.9% 250 ML 75 ML IV (08:36)
[2023-09-09] MEDS: palonosetron 0.25 mg/5 mL SDV IVP (08:46)
[2023-09-09] MEDS: fosaprepitant 150 MG in sodium chloride 0.9% 150 ML 300 MG IV (09:12)
[2023-09-09 11:10] VITALS: BP 118/62; PULSE 57; RESP 16; TEMP 36.4; O2SAT 96
[2023-09-15 10:04] VITALS: BP 120/65; PULSE 65; RESP 16; TEMP 36.5; O2SAT 95
[2023-09-15 10:28] LABS: Basophils % 0.6 %; Eosinophils # 0.2 10^3/uL (0.0-0.8); Eosinophils % 5.1 %; Hematocrit 32.2 % (37-53); Lymphocytes # 0.2 10^3/uL (0.8-4.8); Lymphocytes % 6.9 %; Mean Corpuscular HGB Conc 33.5 g/dL (30-55); Mean Corpuscular Hemoglobin 28.5 pg (27-33); Mean Platelet Volume 8.8 fL (7.4-10.4); Monocytes # 0.4 10^3/uL (0.2-0.9); Monocytes % 10.7 %; Neutrophils # 2.54 10^3/uL (1.8-7.7); Neutrophils % 75.8 %; Nucleated Red Blood Cells % 0 %; Platelet Count 104 10^3/cmm (157-399); Red Blood Count 3.79 10^6/uL (3.85-5.65); Red Cell Distribution Width 15.6 % (12.1-15.1); White Blood Count 3.35 10^3/uL (3.29-11.43)
[2023-09-22 10:40] VITALS: BP 136/67; PULSE 68; RESP 16; TEMP 36.7; O2SAT 98
[2023-09-22 10:47] LABS: Basophils % 0.7 %; Eosinophils # 0.1 10^3/uL (0.0-0.8); Eosinophils % 3.4 %; Lymphocytes # 0.5 10^3/uL (0.8-4.8); Lymphocytes % 17.6 %; Mean Corpuscular HGB Conc 33.8 g/dL (30-55); Mean Corpuscular Volume 85.8 fl (82-101); Mean Platelet Volume 8.8 fL (7.4-10.4); Monocytes # 0.4 10^3/uL (0.2-0.9); Monocytes % 13.5 %; Neutrophils # 1.89 10^3/uL (1.8-7.7); Neutrophils % 63.8 %; Nucleated Red Blood Cells % 0 %; Platelet Count 129 10^3/cmm (157-399); Red Blood Count 3.73 10^6/uL (3.85-5.65); Red Cell Distribution Width 15.3 % (12.1-15.1); White Blood Count 2.96 10^3/uL (3.29-11.43)
== END 2023-09-22 23:59 | disposition home or self-care (01) ==
PROVIDERS: PCP Nurse Practitioner; Visit Provider Internal Medicine Medical Oncology
DX: C82.18 Follicular lymphoma grade II, lymph nodes of multiple sites (principal)
CPT/HCPCS: 36415; 85025; 96367; 96413; J1100; J1453; J2469; J7040; J7050; J9034

== ENCOUNTER 2023-10-06 07:30 | Oncology outpatient (recurring) (ONCR) | payer MEDICARE, OTHER, SELFPAY ==
[2023-09-29 11:03] VITALS: BP 134/72; PULSE 70; RESP 16; TEMP 36.5; O2SAT 96
[2023-09-29 11:13] LABS: Basophils % 1.1 %; Eosinophils # 0.1 10^3/uL (0.0-0.8); Eosinophils % 2.9 %; Hematocrit 31.3 % (37-53); Lymphocytes % 35.9 %; Mean Corpuscular HGB Conc 33.5 g/dL (30-55); Mean Corpuscular Hemoglobin 28.7 pg (27-33); Mean Corpuscular Volume 85.5 fl (82-101); Mean Platelet Volume 8.2 fL (7.4-10.4); Monocytes # 0.3 10^3/uL (0.2-0.9); Monocytes % 11.7 %; Neutrophils # 1.25 10^3/uL (1.8-7.7); Neutrophils % 45.8 %; Nucleated Red Blood Cells % 0 %; Platelet Count 130 10^3/cmm (157-399); Red Blood Count 3.66 10^6/uL (3.85-5.65); Red Cell Distribution Width 14.9 % (12.1-15.1); White Blood Count 2.73 10^3/uL (3.29-11.43)
[2023-10-06 08:15] VITALS: BP 122/59; PULSE 64; RESP 16; TEMP 36.8; O2SAT 97
[2023-10-06 08:22] LABS: Basophils % 0.8 %; Eosinophils # 0.1 10^3/uL (0.0-0.8); Eosinophils % 2.8 %; Hematocrit 31.4 % (37-53); Lymphocytes # 0.9 10^3/uL (0.8-4.8); Lymphocytes % 35.6 %; Mean Corpuscular HGB Conc 33.1 g/dL (30-55); Mean Corpuscular Volume 87.5 fl (82-101); Mean Platelet Volume 8.8 fL (7.4-10.4); Monocytes # 0.2 10^3/uL (0.2-0.9); Monocytes % 7.9 %; Neutrophils # 1.23 10^3/uL (1.8-7.7); Neutrophils % 48.6 %; Nucleated Red Blood Cells % 0 %; Platelet Count 127 10^3/cmm (157-399); Red Blood Count 3.59 10^6/uL (3.85-5.65); Red Cell Distribution Width 14.6 % (12.1-15.1); White Blood Count 2.53 10^3/uL (3.29-11.43)
[2023-10-06 08:44] LABS: Alanine Aminotransferase 12 U/L (0-41); Albumin Level 3.8 g/dL (3.5-5.2); Alkaline Phosphatase 99 U/L (40-130); Anion Gap 11.1 (5-19); Aspartate Amino Transferase 18 U/L (0-40); Blood Urea Nitrogen 11 mg/dL (8-23); Calcium 8.6 mg/dL (8.5-10.5); Carbon Dioxide 29 mmol/L (22-29); Chloride 107 mmol/L (98-107); Globulin 1.9 g/dL (1.3-4.6); Glomerular Filtration Rate 135.2 mL/min (90-130); Glucose 122 mg/dL (65-115); Lactate Dehydrogenase 248 U/L (135-225); Osmolality Calculated 299 mOsm/kg (285-295); Potassium 3.1 mmol/L (3.5-5.1); Sodium 144 mmol/L (136-145); Total Bilirubin 0.5 mg/dL (0.15-1.2); Total Protein 5.7 g/dL (6.6-8.7)
[2023-10-06] MEDS: sodium chlor 0.9% + KCl 40 mEq 40 MEQ/1,000 ML BAG 250 MEQ IV (10:43)
[2023-10-06] MEDS: acetaminophen 325 mg Tablet 650 MG PO (10:46)
[2023-10-06] MEDS: sodium chloride 0.9% 250 ML 75 ML IV (10:47)
[2023-10-06] MEDS: diphenhydrAMINE 50 mg/mL SDV 1mL 25 MG IVP (10:50)
[2023-10-06] MEDS: ondansetron 2 mg/ML SDV 2 mL 8 MG IVP (10:52)
[2023-10-06 11:20] VITALS: BP 113/70; PULSE 52; RESP 16; TEMP 36.4; O2SAT 97
[2023-10-06 11:50] VITALS: BP 130/71; PULSE 56; RESP 16; TEMP 36.6; O2SAT 96
[2023-10-06 12:20] VITALS: BP 119/63; PULSE 59; RESP 16; TEMP 36.6; O2SAT 94
[2023-10-06 12:50] VITALS: BP 134/75; PULSE 78; RESP 16; TEMP 36.6; O2SAT 96
[2023-10-06 15:20] VITALS: BP 144/70; PULSE 60; RESP 16; TEMP 36.3; O2SAT 97
== END 2023-10-06 23:59 | disposition home or self-care (01) ==
PROVIDERS: PCP Nurse Practitioner; Visit Provider Internal Medicine Medical Oncology
DX: C82.18 Follicular lymphoma grade II, lymph nodes of multiple sites (principal); Z51.11 Encounter for antineoplastic chemotherapy; D50.8 Other iron deficiency anemias; Z79.899 Other long term (current) drug therapy; Z87.891 Personal history of nicotine dependence
CPT/HCPCS: 36415; 80053; 83615; 85025; 96365; 96366; 96367; 96375; 96411; 96413; 96415; 99215; J1100; J1200; J2405; J7040; J7050; J9034; Q5115

== ENCOUNTER 2023-10-07 06:00 | Oncology outpatient (recurring) (ONCR) | payer MEDICARE, OTHER, SELFPAY ==
[2023-10-07 08:28] VITALS: BP 142/61; PULSE 64; O2SAT 98
[2023-10-07] MEDS: sodium chloride 0.9% 250 ML 75 ML IV (08:35)
[2023-10-07] MEDS: palonosetron 0.25 mg/5 mL SDV IVP (08:37)
[2023-10-07] MEDS: fosaprepitant 150 MG in sodium chloride 0.9% 150 ML 300 MG IV (09:07)
[2023-10-07 10:01] VITALS: BP 121/51; PULSE 55; O2SAT 95
== END 2023-10-22 23:59 | disposition home or self-care (01) ==
LOC: ONCMED 07:15
PROVIDERS: PCP Nurse Practitioner; Visit Provider Internal Medicine Medical Oncology
DX: C82.18 Follicular lymphoma grade II, lymph nodes of multiple sites (principal); Z51.11 Encounter for antineoplastic chemotherapy
CPT/HCPCS: 96367; 96375; 96413; J1100; J1453; J2469; J7050; J9034

== ENCOUNTER 2023-10-26 09:49 | Outpatient (CLI) | payer MEDICARE, OTHER, SELFPAY ==
--- NOTE | 2023-10-26 10:15 | USCV_ITS ---
Juan Antonio Deleon Age: 67 Gender: M : 1955 Exam Date: 10/26/2023 10:04 Ordering Phys: José Luis Pastor Technologist: Gisel Coto [place] [facility] [place]: murmur BP: 148 / 58 HR: 61 Rhythm: Other Technical Quality: Adequate MEASUREMENTS (Male / Female) Normal Values 2D ECHO LV Diastolic Diameter PLAX 4.7 cm 4.2 - 5.9 / 3.9 - 5.3 cm LV Systolic Diameter PLAX 2.5 cm IVS Diastolic Thickness 1.5 cm 0.6 - 1.0 / 0.6 - 0.9 cm IVS Systolic Thickness 2.1 cm LVPW Diastolic Thickness 1.2 cm 0.6 - 1.0 / 0.6 - 0.9 cm LVPW Systolic Thickness 1.6 cm LVOT Diameter 2.0 cm LV Ejection Fraction 2D Teich 77.5 % LV Ejection Fraction MOD 2C 60.4 % LV Ejection Fraction 2C AL 60.6 % LA Diameter 3.6 cm LA Width 3.4 cm LA Height 3.5 cm RA Width 3.7 cm RA Height 3.5 cm Aorta at Sinotubular Diameter 2.5 cm IVC Diameter 2.2 cm M-MODE Aortic Annulus Diameter 3.5 cm LA Ao Ratio MM 1.1 MV E Point Septal Separation 0.3 cm DOPPLER AV Peak Velocity 151.0 cm/s LVOT Peak Velocity 122.0 cm/s AV Area Cont Eq vti 2.3 cm squared AV Area Cont Eq pk 2.6 cm squared MV Peak Velocity 110.0 cm/s MV Area PHT 2.5 cm squared Mitral E to A Ratio 0.8 MV E' Velocity 44.0 cm/s Mitral E to MV E' Ratio 13.5 Mitral E to LV E' Lateral Ratio 11.9 Mitral E to LV E' Septal Ratio 15.9 TR Peak Velocity 113.0 cm/s TR Peak Gradient 5.1 mmHg Right Atrial Pressure 5.0 mmHg Pulmonary Artery Systolic Pressu 10.1 mmHg PV Peak Velocity 122.0 cm/s RV Acceleration Time 0.1 s RV Ejection Time 0.3 s RV AcT/ET 0.4 FINDINGS Left Ventricle Normal left ventricular size, systolic function and wall thickness, with no regional wall motion abnormalities. Grade I/IV diastolic dysfunction (abnormal relaxation filling pattern), normal to mildly elevated filling pressures. Left ventricular ejection fraction is estimated at 65 %. Right Ventricle Normal right ventricular size and systolic function. Normal right ventricular systolic pressure. Right Atrium The right atrium is normal in size. Left Atrium The left atrium is normal in size. Mitral Valve Structurally normal mitral valve without significant stenosis or prolapse. There is no mitral regurgitation. Aortic Valve Structurally normal aortic valve without significant sclerosis or stenosis. There is no aortic regurgitation. Tricuspid Valve Structurally normal tricuspid valve without significant stenosis or regurgitation. Pulmonary artery systolic pressure is normal. Pulmonic Valve Pulmonic valve not well visualized. Mild pulmonary valve regurgitation. Pericardium Normal pericardium without effusion. Aorta Normal ascending aorta dimension. IVC The inferior vena cava appears normal. CONCLUSIONS Normal left ventricular size, systolic function and wall thickness, with no regional wall motion abnormalities. Grade I/IV diastolic dysfunction (abnormal relaxation filling pattern), normal to mildly elevated filling pressures. Left ventricular ejection fraction is estimated at 65 %. Study is compared to the previous evaluation from 10/10/19. There has been no change. Dr. Derian Lopez MD (Electronically Signed) Final Date: 27 October 2023 15:24 S
== END 2023-10-26 09:50 | disposition home or self-care (01) ==
LOC: RAD 09:50
PROVIDERS: PCP Nurse Practitioner; Visit Provider Nurse Practitioner
DX: R01.1 Cardiac murmur, unspecified (principal); I51.89 Other ill-defined heart diseases
CPT/HCPCS: 93306

== ENCOUNTER 2023-11-03 07:47 | Oncology outpatient (recurring) (ONCR) | payer MEDICARE, OTHER, SELFPAY ==
[2023-11-03 08:06] VITALS: BP 115/64; PULSE 76; RESP 16; TEMP 36.3; O2SAT 95
[2023-11-03 08:33] LABS: Basophils % 1.5 %; Eosinophils # 0.2 10^3/uL (0.0-0.8); Eosinophils % 5.6 %; Hematocrit 34.7 % (37-53); Lymphocytes # 0.7 10^3/uL (0.8-4.8); Lymphocytes % 27.6 %; Mean Corpuscular HGB Conc 34.3 g/dL (30-55); Mean Corpuscular Hemoglobin 29.3 pg (27-33); Mean Corpuscular Volume 85.5 fl (82-101); Mean Platelet Volume 8.6 fL (7.4-10.4); Monocytes # 0.3 10^3/uL (0.2-0.9); Monocytes % 11.6 %; Neutrophils # 1.32 10^3/uL (1.8-7.7); Neutrophils % 49.2 %; Nucleated Red Blood Cells % 0 %; Platelet Count 174 10^3/cmm (157-399); Red Blood Count 4.06 10^6/uL (3.85-5.65); Red Cell Distribution Width 13.6 % (12.1-15.1); White Blood Count 2.68 10^3/uL (3.29-11.43)
[2023-11-03 08:55] LABS: Alanine Aminotransferase 15 U/L (0-41); Albumin Level 4.2 g/dL (3.5-5.2); Alkaline Phosphatase 90 U/L (40-130); Anion Gap 11.9 (5-19); Aspartate Amino Transferase 17 U/L (0-40); Blood Urea Nitrogen 16 mg/dL (8-23); Calcium 9.1 mg/dL (8.5-10.5); Carbon Dioxide 28 mmol/L (22-29); Chloride 104 mmol/L (98-107); Ferritin 902 ng/mL (30-400); Globulin 2.1 g/dL (1.3-4.6); Glomerular Filtration Rate 113.2 mL/min (90-130); Glucose 94 mg/dL (65-115); Iron 74 ug/dL (59-158); Lactate Dehydrogenase 240 U/L (135-225); Osmolality Calculated 291 mOsm/kg (285-295); Percent Saturation 25.7 % (20-50); Potassium 3.9 mmol/L (3.5-5.1); Sodium 140 mmol/L (136-145); Total Bilirubin 0.6 mg/dL (0.15-1.2); Total Iron Binding Capacity 287 mcg/dl; Total Protein 6.3 g/dL (6.6-8.7); Unsaturated Iron Binding 213 ug/dL (112-347)
[2023-11-03 09:10] LABS: Vitamin B12 800 pg/mL (232-1245)
[2023-11-03] MEDS: sodium chloride 0.9% 250 ML 75 ML IV (09:53)
[2023-11-03] MEDS: diphenhydrAMINE 50 mg/mL SDV 1mL 25 MG IVP (09:53)
[2023-11-03] MEDS: ondansetron 2 mg/ML SDV 2 mL 8 MG IVP (09:54)
[2023-11-03] MEDS: acetaminophen 325 mg Tablet 650 MG PO (09:54)
[2023-11-03 10:30] VITALS: BP 95/55; PULSE 60; RESP 16; TEMP 36.6; O2SAT 93
[2023-11-03 10:33] LABS: Folate Level 12.9 ng/mL (4.5-32.2)
[2023-11-03 11:00] VITALS: BP 89/50; PULSE 74; RESP 16; TEMP 36.6; O2SAT 97
[2023-11-03 11:30] VITALS: BP 106/63; PULSE 54; RESP 16; TEMP 36.6; O2SAT 91
[2023-11-03 12:00] VITALS: BP 112/67; PULSE 54; RESP 16; TEMP 36.6; O2SAT 97
[2023-11-03 13:40] VITALS: BP 120/69; PULSE 62; RESP 16; TEMP 36.6; O2SAT 96
[2023-11-06 11:11] LABS: Soluble Transferrin Receptor 1.06 mg/L (0.76-1.76)
== END 2023-11-03 23:59 | disposition home or self-care (01) ==
PROVIDERS: Internal Medicine; PCP Nurse Practitioner; Visit Provider Internal Medicine Medical Oncology
DX: Z51.11 Encounter for antineoplastic chemotherapy (principal); C82.18 Follicular lymphoma grade II, lymph nodes of multiple sites; D50.8 Other iron deficiency anemias; Z79.899 Other long term (current) drug therapy
CPT/HCPCS: 80053; 82607; 82728; 82746; 83540; 83550; 83615; 84238; 85025; 96367; 96375; 96413; 96415; 96417; 99214; J1100; J1200; J2405; J7040; J7050; J9034; Q5115

== ENCOUNTER 2023-11-04 08:15 | Oncology outpatient (recurring) (ONCR) | payer MEDICARE, OTHER, SELFPAY ==
[2023-11-04 08:39] VITALS: BP 109/67; PULSE 67; RESP 18; TEMP 36.6; O2SAT 97
[2023-11-04] MEDS: palonosetron 0.25 mg/5 mL SDV IVP (09:13)
[2023-11-04] MEDS: sodium chloride 0.9% 250 ML 75 ML IV (09:13)
[2023-11-04] MEDS: fosaprepitant 150 MG in sodium chloride 0.9% 150 ML 300 MG IV (09:37)
[2023-11-04 11:00] VITALS: BP 110/63; PULSE 60; RESP 16; TEMP 36.2; O2SAT 98
== END 2023-11-22 23:59 | disposition home or self-care (01) ==
LOC: ONCMED 08:15
PROVIDERS: PCP Nurse Practitioner; Visit Provider Internal Medicine Medical Oncology
DX: Z51.11 Encounter for antineoplastic chemotherapy (principal); C82.18 Follicular lymphoma grade II, lymph nodes of multiple sites
CPT/HCPCS: 96367; 96375; 96413; J1100; J1453; J2469; J7050; J9034

== ENCOUNTER 2023-11-24 09:03 | Outpatient (CLI) | payer MEDICARE, OTHER, SELFPAY ==
--- NOTE | 2023-11-24 09:30 | PETR_ITS ---
PROCEDURE INFORMATION: Exam: PET/CT Skull Base to Mid-thigh Exam date and time: 11/24/2023 10:29 AM Age: 67 years old Clinical indication: Condition or disease; Primary cancer: Follicular lymphoma; Follow-up oncological assessment; Condition/disease: Lymph nodes of multiple sites; Additional info: Compre to previous, to be completed on 11/24/23 LABS AND CLINICAL REPORTS: Glucose: 122 mg/dl Treatment strategy for malignancy (PET staging): Restaging (PS) TECHNIQUE: Imaging protocol: Following at least four-hour fasting and following the injection of radiopharmaceutical, low dose CT images were obtained. Then, PET images were obtained. Attenuation corrected images were constructed using the CT scan. Fused images of PET and CT were reviewed. The standardized uptake values (SUV) reported below are maximum values within a region of interest, expressed in gm/ml. Exam includes orbital meatal line to mid-thigh. Radiopharmaceutical: 13.17 mCi F-18 FDG (Fluorodeoxyglucose), IV. Time of imaging post radiopharmaceutical administration: 1 hour Injection site: Left antecubital COMPARISON: CT abdomen and pelvis 06/25/2023, PT PET skulltothi INITIAL [id number] 05/02/2023 12:53 PM FINDINGS: Brain: Visualized brain has normal physiologic uptake. Salivary glands: There is benign-appearing, likely physiologic or inflammatory uptake in the bilateral parotid glands, SUV max 4.0 on the right and 3.5 on the left with no corresponding lesions on the CT images. Pharynx: No abnormal uptake. Larynx: No abnormal uptake. Lungs, pleura and trachea: No abnormal uptake. Bilateral pulmonary calcified granulomas are present. Non radiotracer avid mild biapical pleural scarring is present. Non radiotracer avid pleural based patchy and somewhat nodular density in the inferior medial right lower lobe is noted in an area measuring 1.4 x 0.9 cm on series 3, image 123. A rounded focus of pleural based nodular density in the medial posterior left lower lobe measuring 6 mm on series 3, image 105 is not radiotracer avid. These pleural based densities appear more prominent in the right lower lobe and new in the left lower lobe compared to the previous examinations. A previously noted 3 mm left upper lobe nodule appears similar on series 3, image 78 and continues to be non radiotracer avid. Heart: Normal physiologic uptake. Mediastinal space: No abnormal uptake. Liver: No abnormal uptake. Gallbladder and bile ducts: No abnormal uptake. There are stones in the gallbladder. Pancreas: No abnormal uptake. Spleen: Moderate prominence of the spleen is slightly decreased currently measuring 17.6 cm superior to inferior (previously 19.[address] of 06/25/2023) without elevated uptake, SUV max 2.4, SUV mean 1.6 (previously 3.9) Adrenal glands: No abnormal uptake. Kidneys and ureters: Normal physiologic uptake. Rounded low-density structures consistent with simple cysts in both kidneys are noted. There are 1-2 mm in diameter nonobstructing left renal calculi. Stomach and bowel: No abnormal uptake. There is physiologic appearing uptake within the stomach and bowel.There are scattered colonic diverticula. Reproductive: Moderate prominence of the prostate gland without elevated uptake. Vasculature: No abnormal uptake. There are diffuse atherosclerotic changes including within the coronary arteries. Lymph nodes: A previously noted radiotracer avid lymph node posterior to the left clavicle is no longer pathologically enlarged or radiotracer avid currently measuring approximately 0.9 x 0.3 cm on series 3, image 62. There has been interval resolution of elevated uptake within previously noted radiotracer avid mediastinal, right hilar and bilateral axillary and subpectoral lymph nodes since the prior PET-CT. These lymph nodes are no longer pathologically enlarged. Small calcified non radiotracer avid subcarinal and left hilar lymph nodes are present. Significant interval decrease in size and radiotracer activity within previously noted lymph nodes in the abdomen and pelvis compared with the prior CT of 06/25/2023 and the PET-CT. A non radiotracer avid mildly prominent left periaortic mid abdominal lymph node measures 1.5 x 1.0 cm on series 3, image 166 (previously measuring 3.2 x 2.7 cm on the prior CT of 06/25/2023 and 2.8 x 1.5 cm on the prior PET-CT with a previous SUV max 5.0). A single radiotracer avid left abdominal mesenteric lymph node measuring 1.6 cm on series 3, image 184 is radiotracer avid, SUV max 3.8. Scattered additional mildly prominent mesenteric lymph nodes are noted without elevated uptake for example in the right lower quadrant on series 3, image 195 measuring 1.2 cm. No pelvic lymphadenopathy. Bones/joints: No abnormal uptake in the visualized axial and appendicular skeleton. Degenerative changes in the spine are noted. Soft tissues: No abnormal uptake in the visualized head, neck, chest, abdomen, pelvis, and extremities. METRICS: Mediastinal blood pool: SUV max 2.5 Liver uptake: SUV max 2.8, SUV mean 2.5 [facility] SUB[facility] [id number] IMPRESSION: 1. Significant interval decrease in prominence of previously noted enlarged lymph nodes in the chest, abdomen and pelvis compared with the prior CT of 06/25/2023 PET-CT and within the chest compared with the prior PET-CT consistent with interval response to therapy. A single mesenteric lymph node in the left abdomen demonstrates elevated uptake (SUV max 3.8). 2. Interval slight decrease in splenomegaly compared with the CT of 06/25/2023 with interval resolution of previously noted elevated uptake consistent with interval response to therapy. 3. Similar 3 mm left upper lobe nodule without elevated uptake. New areas of pleural based nodular density in the medial right lower lobe and left lower lobe appear increased in the right lower lobe and new in the left lower lobe compared with the prior examinations without elevated uptake suggestive of foci of scarring or rounded atelectasis. 4. Additional nonurgent findings as detailed above. Deauville Scorin: No uptake 2: Uptake < or = mediastinal blood pool (max SUV) 3: Uptake > mediastinal blood pool (max SUV) but < or = liver (max SUV) 4: Uptake moderately higher than liver (uptake > maximum SUV of the liver) 5: Uptake markedly higher than liver (uptake 2-3x > maximum SUV of the liver) and/or new lesions
== END 2023-11-24 09:04 | disposition home or self-care (01) ==
LOC: RAD 09:03
PROVIDERS: PCP Nurse Practitioner; Visit Provider Internal Medicine
DX: C82.18 Follicular lymphoma grade II, lymph nodes of multiple sites (principal)
CPT/HCPCS: 78815; A9552

== ENCOUNTER 2023-12-01 08:05 | Oncology outpatient (recurring) (ONCR) | payer MEDICARE, OTHER, SELFPAY ==
[2023-12-01 08:35] VITALS: BP 105/65; PULSE 78; RESP 18; TEMP 36.5; O2SAT 95
[2023-12-01 08:51] LABS: Basophils % 1.9 %; Eosinophils # 0.2 10^3/uL (0.0-0.8); Eosinophils % 7.2 %; Hematocrit 34.7 % (37-53); Lymphocytes # 0.3 10^3/uL (0.8-4.8); Lymphocytes % 15.3 %; Mean Corpuscular HGB Conc 34.3 g/dL (30-55); Mean Corpuscular Hemoglobin 28.5 pg (27-33); Mean Corpuscular Volume 83.2 fl (82-101); Mean Platelet Volume 8.6 fL (7.4-10.4); Monocytes # 0.4 10^3/uL (0.2-0.9); Monocytes % 20.6 %; Neutrophils # 1.02 10^3/uL (1.8-7.7); Neutrophils % 48.8 %; Nucleated Red Blood Cells % 0 %; Platelet Count 197 10^3/cmm (157-399); Red Blood Count 4.17 10^6/uL (3.85-5.65); Red Cell Distribution Width 13.1 % (12.1-15.1); White Blood Count 2.09 10^3/uL (3.29-11.43)
[2023-12-01 09:07] LABS: Alanine Aminotransferase 12 U/L (0-41); Albumin Level 4.1 g/dL (3.5-5.2); Alkaline Phosphatase 101 U/L (40-130); Aspartate Amino Transferase 15 U/L (0-40); Blood Urea Nitrogen 18 mg/dL (8-23); Calcium 9.6 mg/dL (8.5-10.5); Carbon Dioxide 28 mmol/L (22-29); Chloride 101 mmol/L (98-107); Globulin 2.5 g/dL (1.3-4.6); Glomerular Filtration Rate 135.2 mL/min (90-130); Glucose 99 mg/dL (65-115); Lactate Dehydrogenase 208 U/L (135-225); Osmolality Calculated 290 mOsm/kg (285-295); Sodium 139 mmol/L (136-145); Total Bilirubin 0.5 mg/dL (0.15-1.2); Total Protein 6.6 g/dL (6.6-8.7)
[2023-12-01 09:47] LABS: Slide Review Slide Review Perform
== END 2023-12-23 23:59 | disposition home or self-care (01) ==
PROVIDERS: PCP Nurse Practitioner; Visit Provider Internal Medicine Medical Oncology
DX: Z51.11 Encounter for antineoplastic chemotherapy (principal); C82.18 Follicular lymphoma grade II, lymph nodes of multiple sites; D50.8 Other iron deficiency anemias; Z79.899 Other long term (current) drug therapy
CPT/HCPCS: 80053; 83615; 85025; 99214

== ENCOUNTER 2024-01-12 15:06 | Oncology outpatient (recurring) (ONCR) | payer MEDICARE, OTHER, SELFPAY ==
[2024-01-12 15:53] LABS: Eosinophils # 0.1 10^3/uL (0.0-0.8); Hematocrit 36.6 % (37-53); Lymphocytes # 0.6 10^3/uL (0.8-4.8); Lymphocytes % 21.5 %; Mean Corpuscular HGB Conc 34.2 g/dL (30-55); Mean Corpuscular Hemoglobin 29.1 pg (27-33); Mean Corpuscular Volume 85.1 fl (82-101); Mean Platelet Volume 8.8 fL (7.4-10.4); Monocytes # 0.4 10^3/uL (0.2-0.9); Monocytes % 12.4 %; Neutrophils # 1.71 10^3/uL (1.8-7.7); Neutrophils % 57.4 %; Nucleated Red Blood Cells % 0 %; Platelet Count 170 10^3/cmm (157-399); Red Cell Distribution Width 13.8 % (12.1-15.1); White Blood Count 2.98 10^3/uL (3.29-11.43)
[2024-01-12 16:11] LABS: Iron 69 ug/dL (59-158); Percent Saturation 25.6 % (20-50); Total Iron Binding Capacity 269 mcg/dl; Unsaturated Iron Binding 200 ug/dL (112-347)
== END 2024-01-21 23:59 | disposition home or self-care (01) ==
PROVIDERS: PCP Nurse Practitioner; Visit Provider Internal Medicine Medical Oncology
DX: D50.9 Iron deficiency anemia, unspecified (principal)
CPT/HCPCS: 36415; 83540; 83550; 85025

== ENCOUNTER → 2024-01-27 10:49 | Outpatient (BNVA) | payer MEDICARE, OTHER, SELFPAY | PROVIDERS: PCP Nurse Practitioner; Visit Provider Nurse Practitioner | DX: M16.0 Bilateral primary osteoarthritis of hip (principal); M25.551 Pain in right hip; M25.552 Pain in left hip; M54.50 Low back pain, unspecified | CPT/HCPCS: 72100; 73521; 73523 ==

== ENCOUNTER 2024-02-10 07:51 | Oncology outpatient (recurring) (ONCR) | payer MEDICARE, OTHER, SELFPAY ==
[2024-02-10 08:27] LABS: Basophils % 1.3 %; Eosinophils # 0.1 10^3/uL (0.0-0.8); Eosinophils % 4.6 %; Hematocrit 34.9 % (37-53); Lymphocytes # 0.4 10^3/uL (0.8-4.8); Lymphocytes % 16.7 %; Mean Corpuscular HGB Conc 33.8 g/dL (30-55); Mean Corpuscular Hemoglobin 29.1 pg (27-33); Mean Platelet Volume 8.6 fL (7.4-10.4); Monocytes # 0.3 10^3/uL (0.2-0.9); Monocytes % 12.1 %; Neutrophils # 1.35 10^3/uL (1.8-7.7); Neutrophils % 56.1 %; Nucleated Red Blood Cells % 0 %; Platelet Count 140 10^3/cmm (157-399); Red Blood Count 4.06 10^6/uL (3.85-5.65); Red Cell Distribution Width 13.7 % (12.1-15.1)
[2024-02-10 08:47] LABS: Alanine Aminotransferase 13 U/L (0-41); Albumin Level 4.2 g/dL (3.5-5.2); Alkaline Phosphatase 85 U/L (40-130); Anion Gap 12.9 (5-19); Aspartate Amino Transferase 15 U/L (0-40); Blood Urea Nitrogen 16 mg/dL (8-23); Calcium 9.2 mg/dL (8.5-10.5); Carbon Dioxide 28 mmol/L (22-29); Chloride 106 mmol/L (98-107); Globulin 1.9 g/dL (1.3-4.6); Glomerular Filtration Rate 134.8 mL/min (90-130); Glucose 93 mg/dL (65-115); Lactate Dehydrogenase 244 U/L (135-225); Osmolality Calculated 297 mOsm/kg (285-295); Potassium 3.9 mmol/L (3.5-5.1); Sodium 143 mmol/L (136-145); Total Bilirubin 0.3 mg/dL (0.15-1.2); Total Protein 6.1 g/dL (6.6-8.7)
[2024-02-10 09:17] LABS: Slide Review Slide Review Perform
== END 2024-02-21 23:59 | disposition home or self-care (01) ==
PROVIDERS: PCP Nurse Practitioner; Visit Provider Internal Medicine Medical Oncology
DX: C82.18 Follicular lymphoma grade II, lymph nodes of multiple sites
CPT/HCPCS: 36415; 80053; 83615; 85025

== ENCOUNTER 2024-02-23 09:42 | Oncology outpatient (recurring) (ONCR) | payer MEDICARE, OTHER, SELFPAY ==
[2024-02-23 10:00] LABS: Basophils % 1.3 %; Eosinophils # 0.1 10^3/uL (0.0-0.8); Eosinophils % 3.8 %; Hematocrit 36.5 % (37-53); Lymphocytes # 0.5 10^3/uL (0.8-4.8); Lymphocytes % 22.7 %; Mean Corpuscular HGB Conc 34.2 g/dL (30-55); Mean Corpuscular Hemoglobin 29.4 pg (27-33); Mean Corpuscular Volume 85.9 fl (82-101); Mean Platelet Volume 8.5 fL (7.4-10.4); Monocytes # 0.3 10^3/uL (0.2-0.9); Neutrophils # 1.32 10^3/uL (1.8-7.7); Neutrophils % 55.4 %; Nucleated Red Blood Cells % 0 %; Platelet Count 172 10^3/cmm (157-399); Red Blood Count 4.25 10^6/uL (3.85-5.65); Red Cell Distribution Width 14.2 % (12.1-15.1); White Blood Count 2.38 10^3/uL (3.29-11.43)
[2024-02-23 10:16] LABS: Alanine Aminotransferase 14 U/L (0-41); Albumin Level 4.4 g/dL (3.5-5.2); Alkaline Phosphatase 89 U/L (40-130); Anion Gap 12.3 (5-19); Aspartate Amino Transferase 16 U/L (0-40); Blood Urea Nitrogen 19 mg/dL (8-23); Calcium 9.4 mg/dL (8.5-10.5); Carbon Dioxide 30 mmol/L (22-29); Chloride 102 mmol/L (98-107); Globulin 2.1 g/dL (1.3-4.6); Glomerular Filtration Rate 112.8 mL/min (90-130); Glucose 98 mg/dL (65-115); Lactate Dehydrogenase 235 U/L (135-225); Osmolality Calculated 292 mOsm/kg (285-295); Potassium 4.3 mmol/L (3.5-5.1); Sodium 140 mmol/L (136-145); Total Bilirubin 0.4 mg/dL (0.15-1.2); Total Protein 6.5 g/dL (6.6-8.7)
== END 2024-03-22 23:59 | disposition home or self-care (01) ==
PROVIDERS: PCP Nurse Practitioner; Visit Provider Internal Medicine Medical Oncology
DX: C82.18 Follicular lymphoma grade II, lymph nodes of multiple sites (principal); Z79.899 Other long term (current) drug therapy
CPT/HCPCS: 36415; 80053; 83615; 85025; 99214

== ENCOUNTER 2024-04-21 14:30 | Oncology outpatient (recurring) (ONCR) | payer MEDICARE, OTHER, SELFPAY ==
[2024-03-23 14:45] LABS: Basophils % 0.8 %; Eosinophils # 0.1 10^3/uL (0.0-0.8); Eosinophils % 3.7 %; Lymphocytes # 0.6 10^3/uL (0.8-4.8); Lymphocytes % 22.5 %; Mean Corpuscular HGB Conc 34.4 g/dL (30-55); Mean Corpuscular Hemoglobin 29.5 pg (27-33); Mean Corpuscular Volume 85.6 fl (82-101); Mean Platelet Volume 9.1 fL (7.4-10.4); Monocytes # 0.2 10^3/uL (0.2-0.9); Monocytes % 6.6 %; Neutrophils # 1.47 10^3/uL (1.8-7.7); Neutrophils % 60.3 %; Nucleated Red Blood Cells % 0 %; Platelet Count 176 10^3/cmm (157-399); Red Blood Count 3.97 10^6/uL (3.85-5.65); Red Cell Distribution Width 13.4 % (12.1-15.1); White Blood Count 2.44 10^3/uL (3.29-11.43)
[2024-03-23 15:45] LABS: Slide Review Slide Review Perform
[2024-04-21 14:42] LABS: Hematocrit 35.3 % (37-53); Mean Corpuscular HGB Conc 34.6 g/dL (30-55); Mean Corpuscular Hemoglobin 29.8 pg (27-33); Mean Corpuscular Volume 86.3 fl (82-101); Mean Platelet Volume 8.8 fL (7.4-10.4); Platelet Count 183 10^3/cmm (157-399); Red Blood Count 4.09 10^6/uL (3.85-5.65); Red Cell Distribution Width 13.4 % (12.1-15.1); White Blood Count 3.05 10^3/uL (3.29-11.43)
[2024-04-21 15:10] LABS: Slide Review Slide Review Perform
[2024-04-21 15:11] LABS: Absolute Eosinophils 0.1 10^3/cmm (0.0-0.7); Absolute Neutrophil 1.8 10^3/cmm (1.4-6.5); Absolute Segmented Neutrophil 1.6 10/cmm (1.6-7.1); Band Neutrophils Absolute 0.2 10^3/cmm (0.0-1.2); Eosinophils 2 %; Lymphocytes 18 %; Monocytes Absolute 0.2 10^3/cmm (0.1-0.6); Platelet Estimate Normal (Normal); Segmented Neutrophils 53 %; Total Cells Counted 100 (0-100)
== END 2024-04-22 23:59 | disposition home or self-care (01) ==
PROVIDERS: Nurse Practitioner Family; PCP Nurse Practitioner; Visit Provider Internal Medicine Medical Oncology
DX: Z53.9 Procedure and treatment not carried out, unspecified reason (principal); C82.18 Follicular lymphoma grade II, lymph nodes of multiple sites
CPT/HCPCS: 36415; 85007; 85025

== ENCOUNTER 2024-05-09 12:00 | Oncology outpatient (recurring) (ONCR) | payer MEDICARE, OTHER, SELFPAY ==
[2023-08-12 08:33] VITALS: BP 139/73; PULSE 66; RESP 17; TEMP 36.1; O2SAT 98
[2024-04-25] MEDS: iohexol 350 mg/mL 500 mL Btl (per mL) PO (13:23)
--- NOTE | 2024-04-25 14:00 | CT_ITS ---
WS: [id number] CT CHEST, ABDOMEN AND PELVIS WITH CONTRAST HISTORY: Surveillance of non-Hodgkin's lymphoma. TECHNIQUE: Contiguous 5 mm axial imaging performed through the chest, abdomen and pelvis with IV cont rast, oral contrast has been provided. Coronal and sagittal reformats chest. Coronal and sagittal ref ormats through the abdomen and pelvis. All CT scans at [facility] use at least one of these d ose optimization techniques: automated exposure control; mA and/or kV adjustment per patient size (in cludes targeted exams where dose is matched to clinical indication); or iterative reconstruction. CONTRAST: Omnipaque 350; 100 mL IV. DLP: 1059.50 mGy.cm COMPARISON: 06/25/2023, 02/26/2023 and PET/CT 11/24/[address]: Mildly hyperinflated lungs. There are a few scattered granulomata. No suspicious pulmonary mass or nodule. No pneumonia. Curvilinear area of atelectasis adjacent to the spine in the RIGHT lowe r lobe. Heart is normal size. No pericardial or pleural effusions. No mediastinal or hilar adenopathy . No axillary lymph nodes. No supraclavicular lymph nodes. Normal size aorta and pulmonary artery. No chest wall abnormality. Abdomen CT: Normal size liver. No intrahepatic duct dilatation. Cholelithiasis without acute cholecys titis. Spleen continues to be enlarged at 16.5 cm in length which represents approximately 3 cm decre ase in size. Splenic granulomata. 5 mm low-attenuation nodule in the periphery of the spleen. Normal pancreas. No adrenal mass. No renal obstruction. There cortical cysts and too small to characterize h ypodensities associated with each kidney which were negative on a recent PET/CT. Atherosclerosis aort a. Stomach is negative. No small bowel obstruction. No colon obstruction. Normal appendix. Moderate dist al colon diverticulosis without acute diverticulitis. No obstruction. Numerous small mesenteric lymph nodes are reidentified. The recent PET/CT positive lymph node in the LEFT mesentery is identified measuring 8 mm. Continued decrease in size of this PET/CT avid lymph nod e. No new or enlarging mesenteric or retroperitoneal lymph nodes. No inguinal lymph nodes. Pelvic CT: Mild prostate enlargement. Very mild bladder wall thickening is symmetric. No free fluid. No osseous abnormalities. No destructive bone lesions. CT/CT chest abdpel w/*[id number] IMPRESSION: 1. No new or increasing lymphadenopathy within the chest, abdomen or pelvis. 2. PET/CT positive lymph node in the LEFT mesentery continues to decrease in s ize now measuring 8 mm. 3. Spleen remains enlarged but has decreased in size. 4. Cholelithiasis without acute cholecystitis. 5. Sigmoid diverticulosis without acute diverticulitis. 6. No suspicious pulmonary nodules or masses.
[2024-04-25] MEDS: iohexol 350 mg/mL 500 mL Btl (per mL) IV (14:47)
[2024-05-09 12:22] LABS: Basophils % 0.8 %; Eosinophils # 0.1 10^3/uL (0.0-0.8); Eosinophils % 2.4 %; Hematocrit 34.2 % (37-53); Lymphocytes # 0.4 10^3/uL (0.8-4.8); Lymphocytes % 17.6 %; Mean Corpuscular HGB Conc 33.3 g/dL (30-55); Mean Corpuscular Hemoglobin 29.2 pg (27-33); Mean Corpuscular Volume 87.5 fl (82-101); Mean Platelet Volume 9.1 fL (7.4-10.4); Monocytes # 0.3 10^3/uL (0.2-0.9); Monocytes % 10.4 %; Neutrophils # 1.52 10^3/uL (1.8-7.7); Nucleated Red Blood Cells % 0 %; Platelet Count 165 10^3/cmm (157-399); Red Blood Count 3.91 10^6/uL (3.85-5.65); Red Cell Distribution Width 13.2 % (12.1-15.1)
[2024-05-09 12:53] LABS: Alanine Aminotransferase 11 U/L (0-41); Albumin Level 4.1 g/dL (3.5-5.2); Alkaline Phosphatase 90 U/L (40-130); Anion Gap 11.6 (5-19); Aspartate Amino Transferase 15 U/L (0-40); Blood Urea Nitrogen 17 mg/dL (8-23); Calcium 9.2 mg/dL (8.5-10.5); Carbon Dioxide 29 mmol/L (22-29); Chloride 109 mmol/L (98-107); Globulin 2.2 g/dL (1.3-4.6); Glomerular Filtration Rate 112.8 mL/min (90-130); Glucose 107 mg/dL (65-115); Lactate Dehydrogenase 266 U/L (135-225); Osmolality Calculated 302 mOsm/kg (285-295); Potassium 4.6 mmol/L (3.5-5.1); Sodium 145 mmol/L (136-145); Total Bilirubin 0.3 mg/dL (0.15-1.2); Total Protein 6.3 g/dL (6.6-8.7)
[2024-05-09 13:08] LABS: Neutrophils % 68.8 %; Slide Review Slide Review Perform
== END 2024-05-22 23:59 | disposition home or self-care (01) ==
PROVIDERS: Internal Medicine Medical Oncology; PCP Nurse Practitioner; Visit Provider Nurse Practitioner Family
DX: C82.18 Follicular lymphoma grade II, lymph nodes of multiple sites (principal); Z53.9 Procedure and treatment not carried out, unspecified reason
CPT/HCPCS: 36415; 71260; 74177; 80053; 83615; 85025; 99213; Q9967

== ENCOUNTER 2024-08-02 10:34 | Outpatient (CLI) | payer MEDICARE, OTHER, SELFPAY ==
--- NOTE | 2024-08-02 10:40 | XR_ITS ---
WS: [id number] XR KUB [id number] REASON FOR EXAM: RENAL CYST FINDINGS: CT 04/25/2024 demonstrates a 2 to 3 mm left renal calculus and submillimeter left renal calculus with n o right renal calculi. No urinary tract calculi are identified on the plain film examination. Bowel gas pattern is unremarkable. No free air or retroperitoneal air. No mass is identified. XR/XR KUB [id number] IMPRESSION: No significant abnormality.
== END 2024-08-02 10:35 | disposition home or self-care (01) ==
LOC: RAD 10:37
PROVIDERS: PCP Nurse Practitioner; Visit Provider Urology
DX: N28.1 Cyst of kidney, acquired (principal); N20.0 Calculus of kidney
CPT/HCPCS: 74018

== ENCOUNTER 2024-08-09 10:47 | Oncology outpatient (recurring) (ONCR) | payer MEDICARE, OTHER, SELFPAY ==
[2024-08-09 11:21] LABS: Basophils % 0.8 %; Eosinophils # 0.1 10^3/uL (0.0-0.8); Hematocrit 34.9 % (37-53); Lymphocytes # 0.8 10^3/uL (0.8-4.8); Lymphocytes % 20.4 %; Mean Corpuscular HGB Conc 34.1 g/dL (30-55); Mean Corpuscular Hemoglobin 29.6 pg (27-33); Mean Corpuscular Volume 86.8 fl (82-101); Mean Platelet Volume 8.7 fL (7.4-10.4); Monocytes # 0.3 10^3/uL (0.2-0.9); Monocytes % 7.1 %; Neutrophils # 2.75 10^3/uL (1.8-7.7); Neutrophils % 69.2 %; Nucleated Red Blood Cells % 0 %; Platelet Count 156 10^3/cmm (157-399); Red Blood Count 4.02 10^6/uL (3.85-5.65); Red Cell Distribution Width 13.1 % (12.1-15.1); White Blood Count 3.97 10^3/uL (3.29-11.43)
[2024-08-09 11:49] LABS: Alanine Aminotransferase 10 U/L (0-41); Albumin Level 4.2 g/dL (3.5-5.2); Alkaline Phosphatase 106 U/L (40-130); Anion Gap 13.8 (5-19); Aspartate Amino Transferase 11 U/L (0-40); Blood Urea Nitrogen 13 mg/dL (8-23); Calcium 9.3 mg/dL (8.5-10.5); Carbon Dioxide 29 mmol/L (22-29); Chloride 105 mmol/L (98-107); Globulin 2.1 g/dL (1.3-4.6); Glomerular Filtration Rate 112.8 mL/min (90-130); Glucose 97 mg/dL (65-115); Lactate Dehydrogenase 143 U/L (135-225); Osmolality Calculated 296 mOsm/kg (285-295); Potassium 4.8 mmol/L (3.5-5.1); Sodium 143 mmol/L (136-145); Total Bilirubin 0.4 mg/dL (0.15-1.2); Total Protein 6.3 g/dL (6.6-8.7)
== END 2024-08-22 23:59 | disposition home or self-care (01) ==
PROVIDERS: Internal Medicine Medical Oncology; PCP Nurse Practitioner; Visit Provider Nurse Practitioner Family
DX: C82.18 Follicular lymphoma grade II, lymph nodes of multiple sites (principal); M25.551 Pain in right hip
CPT/HCPCS: 36591; 80053; 83615; 85025; 99214

== ENCOUNTER 2024-08-31 09:12 | Outpatient (CLI) | payer MEDICARE, OTHER, SELFPAY ==
--- NOTE | 2024-08-31 09:30 | CTR_ITS ---
PROCEDURE INFORMATION: Exam: CT Chest With Contrast; Diagnostic Exam date and time: 08/31/2024 10:27 AM Age: 68 years old Clinical indication: Condition or disease; Primary cancer: Non hodgkins lymphoma; Additional info: Surveillance TECHNIQUE: Imaging protocol: Diagnostic computed tomography of the chest with contrast. Radiation optimization: All CT scans at this facility use at least one of these dose optimization techniques: automated exposure control; mA and/or kV adjustment per patient size (includes targeted exams where dose is matched to clinical indication); or iterative reconstruction. Contrast material: OMNI 350; Contrast volume: 100 ml; Contrast route: INTRAVENOUS (IV); COMPARISON: CT chest abdpel w/*[id number] 04/25/2024 2:48 PM RADIATION DOSE METRICS: Total DLP (mGy-cm): 1115.18 FINDINGS: Lungs: Unremarkable. No consolidation. No masses. Pleural spaces: Unremarkable. No pneumothorax. No pleural effusion. Heart: Unremarkable. No cardiomegaly. No pericardial effusion. Lymph nodes: Unremarkable. No enlarged lymph nodes. Vasculature: Unremarkable. No aortic aneurysm. Bones/joints: Unremarkable. No acute fracture. Soft tissues: Unremarkable. PROCEDURE INFORMATION: Exam: CT Abdomen And Pelvis With Contrast Exam date and time: 08/31/2024 10:27 AM Age: 68 years old Clinical indication: Condition or disease; Primary cancer: Non hodgkins lymphoma; Additional info: Surveillance TECHNIQUE: Imaging protocol: Computed tomography of the abdomen and pelvis with contrast. Radiation optimization: All CT scans at this facility use at least one of these dose optimization techniques: automated exposure control; mA and/or kV adjustment per patient size (includes targeted exams where dose is matched to clinical indication); or iterative reconstruction. Contrast material: OMNI 350; Contrast volume: 100 ml; Contrast route: INTRAVENOUS (IV); COMPARISON: CT chest abdpel w/*[id number] 04/25/2024 2:48 PM RADIATION DOSE METRICS: Total DLP (mGy-cm): 1115.18 FINDINGS: Lungs: Lung bases are clear. No pleural effusion. Liver: Normal. No mass. Gallbladder and biliary ducts: Multiple gallstones are noted in the gallbladder but the gallbladder does not appear inflamed and demonstrates normal wall thickness. Pancreas: Normal. No ductal dilation. Spleen: Mild splenomegaly is noted. Adrenal glands: Normal. No mass. Kidneys and ureters: Small cysts involve both kidneys. Stomach and bowel: Unremarkable. No obstruction. No mucosal thickening. Appendix: No evidence of appendicitis. Intraperitoneal space: Unremarkable. No free air. No significant fluid collection. Vasculature: Unremarkable. No abdominal aortic aneurysm. Lymph nodes: There are multiple mildly prominent central mesenteric lymph nodes measuring up to 1.9 cm in diameter. Urinary bladder: Unremarkable as visualized. Reproductive: The prostate gland is abnormally enlarged. Bones/joints: Unremarkable. No acute fracture. Soft tissues: Unremarkable. CT/CT chest abdpel w/*[id number] IMPRESSION: There is no evidence of active neoplastic disease. IMPRESSION: 1. Central mesenteric adenopathy has enlarged somewhat over the past 4 months. This is of uncertain etiology and clinical significance. Short-term follow-up CT may be needed to ensure stability. 2. Stable splenomegaly 3. Prostate enlargement 4. A benign renal cyst or cysts have been detected. No further follow-up imaging is required. 5. Cholelithiasis COMMENTS: Consistent with the [employer]'s Incidental Findings Committee white paper (J Am Berenice Radiol 2018): Any incidental renal lesion less than 1 cm or classified as too small to characterize, or any incidental cystic renal lesion characterized as simple-appearing, is likely benign. No follow-up imaging is recommended for these lesions per consensus recommendations based on imaging criteria.
[2024-08-31] MEDS: iohexol 350 mg/mL 500 mL Btl (per mL) PO (10:49)
[2024-08-31] MEDS: iohexol 350 mg/mL 500 mL Btl (per mL) IV (10:49)
== END 2024-08-31 09:13 | disposition home or self-care (01) ==
LOC: RAD 09:13
PROVIDERS: PCP Nurse Practitioner; Visit Provider Nurse Practitioner Family
DX: C82.18 Follicular lymphoma grade II, lymph nodes of multiple sites (principal); R16.1 Splenomegaly, not elsewhere classified; N40.0 Benign prostatic hyperplasia without lower urinary tract symptoms; N28.1 Cyst of kidney, acquired; K80.20 Calculus of gallbladder without cholecystitis without obstruction
CPT/HCPCS: 71260; 74177

== ENCOUNTER 2024-09-09 11:02 | Oncology outpatient (recurring) (ONCR) | payer MEDICARE, OTHER, SELFPAY ==
--- NOTE | 2024-09-09 11:30 | PETR_ITS ---
PROCEDURE INFORMATION: Exam: PET/CT Skull Base to Mid-thigh Exam date and time: 09/09/2024 12:27 PM Age: 68 years old Clinical indication: Condition or disease; Primary cancer: Follicular lymphoma grade ii; Follow-up oncological assessment; Additional info: Compare to previous imaging LABS AND CLINICAL REPORTS: Glucose: 89 mg/dl Treatment strategy for malignancy (PET staging): Restaging (PS) TECHNIQUE: Imaging protocol: Following at least four-hour fasting and following the injection of radiopharmaceutical, low dose CT images were obtained. Then, PET images were obtained. Attenuation corrected images were constructed using the CT scan. Fused images of PET and CT were reviewed. The standardized uptake values (SUV) reported below are maximum values within a region of interest, expressed in gm/ml. Exam includes orbital meatal line to mid-thigh. Radiopharmaceutical: 11.95 mCi F-18 FDG (Fluorodeoxyglucose), IV. Time of imaging post radiopharmaceutical administration: 53 minutes Injection site: Left antecubital COMPARISON: 1. PT PET skull to thigh SUBS [id number] 11/24/2023 10:[address] chest abdpel w/*[id number] 08/31/2024 10:27 AM FINDINGS: Brain: Visualized brain has normal physiologic uptake. Pharynx: No abnormal uptake. Larynx: No abnormal uptake. Lungs, pleura and trachea: No abnormal uptake. Mild subsegmental atelectasis versus scarring at the imaged lower lungs. Bilateral calcified granulomata. Resolution of previous 3 mm left upper lobe nodule seen in November 2023. Heart: Normal physiologic uptake. Coronary arteries: Moderate to heavy coronary artery calcification. Mediastinal space: No abnormal uptake. Esophagus: Linear FDG uptake along distal esophagus without discrete underlying CT abnormality, SUV max of 9.7 on axial image 228 of series 202. Liver: No abnormal uptake. Gallbladder and biliary ducts: No abnormal uptake. Cholelithiasis. Pancreas: No abnormal uptake. Spleen: No abnormal uptake. Stable splenomegaly measures 18.4 cm in maximal dimension. Small calcified granulomata. Adrenal glands: No abnormal uptake. Kidneys and ureters: Normal physiologic uptake. Photopenic fluid density left renal cyst. Stomach and bowel: No abnormal uptake. Colonic diverticulosis without findings of diverticulitis. Reproductive: Enlarged prostate measures 4.8 cm in transverse dimension. Diffuse low-level FDG uptake may be physiologic or inflammatory. No focal FDG uptake. Symmetric diffuse low-level testicular FDG uptake is likely physiologic. Vasculature: No abnormal uptake. Heavy systemic atherosclerotic calcification without aortic aneurysm. Lymph nodes: Asymmetric right hilar FDG uptake with SUV max of 6.2 on axial image 262 of series 202 corresponding to lymph node on recent comparison CT, difficult to accurately measure on noncontrast CT images. Calcified mediastinal and left hilar lymph nodes in keeping with sequela of old granulomatous disease. Mildly prominent mesenteric lymph nodes are grossly stable in size with low-level FDG uptake at single right lower abdominopelvic mesenteric node measuring 7 mm in the short axis on axial image 150 of series 202 showing SUV max of 3.3. This node shows preserved reniform morphology. Previous FDG avid left abdominal mesenteric lymph node shows normal size without FDG uptake on today's exam. Skeleton: Degenerative changes along the axial skeletal system. Mild periarticular right glenohumeral joint FDG uptake is likely inflammatory/degenerative. Soft tissues: Linear FDG uptake with possible slight asymmetric dermal thickening at the right axilla showing SUV max of 11.3 on axial image 262 of series 202. Focal FDG uptake at left anterior lower abdominopelvic wall shows SUV max of 9.3 on axial image 109 of series 202 with slight underlying dermal/superficial subcutaneous thickening. PET/PET skull to thigh SUBS [id number] IMPRESSION: 1. Mildly prominent mesenteric lymph nodes are grossly stable in size with low-level FDG uptake at a single nonenlarged right lower abdominopelvic node with normal morphology may be reactive or possibly disease progression. 2. Resolved enlarged left abdominal FDG avid lymph node. 3. FDG avid right hilar lymphadenopathy concerning for disease progression, possibly reactive. 4. Stable splenomegaly. 5. Focal FDG uptake at left anterior lower abdominopelvic wall with slight underlying dermal thickening may be inflammatory or neoplastic. Recommend direct visualization. 6. Focal FDG uptake at right axilla also with questionable underlying dermal thickening. Recommend direct visualization. 7. Linear FDG uptake along distal esophagus without discrete underlying CT abnormality suggestive of esophagitis. 8. Resolved 3 mm left upper lobe nodule. 9. Additional chronic and incidental findings as above, to include atherosclerosis, colonic diverticulosis, cholelithiasis, and prostatomegaly.
== END 2024-09-22 23:59 | disposition home or self-care (01) ==
LOC: RAD 11:06 → ONCMED 09-22 15:35
PROVIDERS: PCP Nurse Practitioner; Visit Provider Nurse Practitioner Family
DX: C82.18 Follicular lymphoma grade II, lymph nodes of multiple sites (principal); M25.551 Pain in right hip
CPT/HCPCS: 78815; A9552

== ENCOUNTER 2024-09-12 08:32 | Outpatient (CLI) | payer MEDICARE, OTHER, SELFPAY ==
--- NOTE | 2024-09-12 08:45 | MR_ITS ---
WS: [id number] MRI PELVIS WITH AND WITHOUT CONTRAST. COMPARISON: PET/CT 09/09/2024 Multiplanar, multisequence imaging is performed with and without contrast. MultiHance 20 mL. No fractures or marrow edema. Normal signal within the bones and hips. No joint effusion. No muscle a trophy. Normal signal within the muscle surrounding the pelvis. No pelvic lymphadenopathy is identified. There are small inguinal lymph nodes which are subcentimeter . Prostate gland is slightly enlarged and heterogeneous. There is no free fluid in the pelvis. Urinar y bladder is negative. No enhancing masses. MR/MR pelvis wo/w con [id number] IMPRESSION: 1. No marrow edema. No metastatic disease to the bone or insufficiency fractur e. 2. No adenopathy in the pelvis.
[2024-09-12] MEDS: gadobenate dimeglumine 20 mL vial IV (09:52)
== END 2024-09-12 08:33 | disposition home or self-care (01) ==
LOC: RAD 08:34
PROVIDERS: PCP Nurse Practitioner; Visit Provider Nurse Practitioner Family
DX: M25.551 Pain in right hip (principal)
CPT/HCPCS: 72197; A9577

== ENCOUNTER 2024-09-13 08:20 | Outpatient (CLI) | payer MEDICARE, OTHER, SELFPAY ==
--- NOTE | 2024-09-13 09:30 | MR_ITS ---
WS: [id number] MRI RIGHT FEMUR WITH AND WITHOUT CONTRAST. COMPARISON: 09/12/2024 MRI pelvis, PET/CT 09/09/2024 Multiplanar, multisequence imaging is performed with and without contrast. MultiHance 20 mL. MRI is c entered on the proximal femur. No destructive bone lesions are identified. No signal abnormalities identified within the bone. Seamus x is normal. No expansion of the medullary cavity. No fluid collections. No signal abnormality within the soft tissues or muscles. On the postcontrast imaging there is no areas of abnormal enhancement. MR/MR femur RT wo/w con [id number] IMPRESSION: Negative MRI RIGHT femur.
[2024-09-13] MEDS: gadobenate dimeglumine 20 mL vial IV (09:34)
== END 2024-09-13 08:21 | disposition home or self-care (01) ==
LOC: RAD 08:21
PROVIDERS: PCP Nurse Practitioner; Visit Provider Nurse Practitioner Family
DX: M25.551 Pain in right hip (principal)
CPT/HCPCS: 73720

== ENCOUNTER 2024-09-30 09:07 | Outpatient (CLI) | payer MEDICARE, OTHER, SELFPAY ==
--- NOTE | 2024-09-30 09:30 | MR_ITS ---
WS: [id number] MRI LUMBAR SPINE WITH AND WITHOUT CONTRAST HISTORY: lumbar pain, pain radiating into RIGHT hip. History of non-Hodgkin's lymphoma. COMPARISON: PET/CT 09/09/2024 TECHNIQUE: Sagittal and axial multisequence imaging is submitted. Postcontrast MultiHance 20 mL. Normal lumbar alignment with no compression fractures or marrow edema. Mild disc desiccation throughout the lumbar spine without significant narrowing. No marrow edema or f racture. No destructive bone process. Conus terminates normally at L1-2 disc level. L1-L2: Mild facet arthropathy. No stenosis. L2-L3: Mild diffuse annular disc bulging with mild ligamentum flavum and facet arthritis. Disc encroa ches into the subarticular recesses contacting the traversing L3 nerve roots. Diffuse disc bulging ex tends into the foramina. Mild central, bilateral subarticular recess and foraminal stenosis. L3-L4: Mild annular disc bulging with facet joint arthritis and ligamentum flavum hypertrophy. There is disc encroachment upon the L3 and L4 nerve roots. Mild bilateral subarticular recess and foraminal stenosis. L4-L5: Mild annular disc bulging with ligamentum flavum and facet arthritis. Shallow RIGHT foraminal disc protrusion. Fluid in the facet joints. There is disc contact on the L4 and L5 nerve roots. Mild central, bilateral subarticular recess and foraminal stenosis. L5-S1: Diffuse asymmetric disc bulging to the RIGHT. Moderate RIGHT foraminal and extraforaminal disc protrusion with significant contact on both the L5 a nd S1 nerve roots. Exiting RIGHT L5 nerve root is being displaced by the disc. Severe RIGHT foraminal stenosis. There is mild disc encroachment upon the subarticular recesses and mild LEFT foraminal aiyana nosis. Bilateral renal cysts. No discitis or osteomyelitis. There is a small amount of enhancement involving an osteophyte along th e inferior posterior L2 vertebral body. There is additional enhancement in the RIGHT L5-S1 foramen at the site of the disc protrusion contacting the nerve root. MR/MR lumbar spine wo/w con [id number] IMPRESSION: 1. No destructive bone lesions or enhancing mass. 2. Diffuse asymmetric disc bulging at L5-S1. Moderate size RIGHT foraminal and extraforaminal disc protrusion contacting and displacing the exiting RIGHT L5 nerve root. There is also mild enhancement suggesting neuritis. Severe RIGHT fo raminal stenosis. 3. L5-S1: Additional mild disc encroachment upon the subarticular recesses and LEFT foramen. 4. L2-3, L3-4 and L4-5: Mild central, bilateral subarticular recess and forami nal stenosis due to disc and facet disease. Mild disc encroachment upon the tra versing nerve roots in the subarticular recesses at each level.
[2024-09-30] MEDS: gadobenate dimeglumine 20 mL vial IV (10:31)
== END 2024-09-30 09:08 | disposition home or self-care (01) ==
LOC: RAD 09:08
PROVIDERS: PCP Nurse Practitioner; Visit Provider Nurse Practitioner Family
DX: M51.360 Other intervertebral disc degeneration, lumbar region with discogenic back pain only (principal); M51.370 Other intervertebral disc degeneration, lumbosacral region with discogenic back pain only; M51.26 Other intervertebral disc displacement, lumbar region; M99.61 Osseous and subluxation stenosis of intervertebral foramina of cervical region; M99.64 Osseous and subluxation stenosis of intervertebral foramina of sacral region; Q61.02 Congenital multiple renal cysts; M25.78 Osteophyte, vertebrae
CPT/HCPCS: 72158

== ENCOUNTER 2024-10-03 11:03 | Oncology outpatient (recurring) (ONCR) | payer MEDICARE, OTHER, SELFPAY ==
[2024-10-03 11:18] LABS: Basophils % 0.5 %; Eosinophils # 0.1 10^3/uL (0.0-0.8); Eosinophils % 2.7 %; Hematocrit 36.2 % (37-53); Lymphocytes # 0.9 10^3/uL (0.8-4.8); Mean Corpuscular HGB Conc 32.9 g/dL (30-55); Mean Corpuscular Volume 85.2 fl (82-101); Mean Platelet Volume 8.5 fL (7.4-10.4); Monocytes # 0.3 10^3/uL (0.2-0.9); Monocytes % 8.3 %; Neutrophils # 2.34 10^3/uL (1.8-7.7); Nucleated Red Blood Cells % 0 %; Platelet Count 145 10^3/cmm (157-399); Red Blood Count 4.25 10^6/uL (3.85-5.65); Red Cell Distribution Width 13.1 % (12.1-15.1); White Blood Count 3.72 10^3/uL (3.29-11.43)
[2024-10-03 11:43] LABS: Alanine Aminotransferase 12 U/L (0-41); Albumin Level 4.3 g/dL (3.5-5.2); Alkaline Phosphatase 99 U/L (40-130); Anion Gap 12.9 (5-19); Aspartate Amino Transferase 15 U/L (0-40); Blood Urea Nitrogen 14 mg/dL (8-23); Carbon Dioxide 29 mmol/L (22-29); Chloride 105 mmol/L (98-107); Creatinine Clr Calc Pharmacy 108.5338; Globulin 2.1 g/dL (1.3-4.6); Glomerular Filtration Rate 112.8 mL/min (90-130); Glucose 99 mg/dL (65-115); Lactate Dehydrogenase 162 U/L (135-225); Osmolality Calculated 297 mOsm/kg (285-295); Potassium 3.9 mmol/L (3.5-5.1); Sodium 143 mmol/L (136-145); Total Bilirubin 0.4 mg/dL (0.15-1.2); Total Protein 6.4 g/dL (6.6-8.7)
== END 2024-10-22 23:59 | disposition home or self-care (01) ==
PROVIDERS: Nurse Practitioner Family; PCP Nurse Practitioner; Visit Provider Internal Medicine Medical Oncology
DX: Z53.9 Procedure and treatment not carried out, unspecified reason (principal); C82.18 Follicular lymphoma grade II, lymph nodes of multiple sites; M25.551 Pain in right hip
CPT/HCPCS: 36415; 80053; 83615; 85025; 99214

== ENCOUNTER 2025-03-03 08:07 | Oncology outpatient (recurring) (ONCR) | payer MEDICARE, OTHER, SELFPAY ==
--- NOTE | 2025-03-03 08:30 | PETR_ITS ---
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 Then, PET images were obtained. Attenuation corrected images were constructed using the CT scan. Fused images of PET and CT were reviewed. The standardized uptake values (SUV) reported below are maximum values within a region of interest, expressed in gm/ml. Exam includes orbital meatal line to mid-thigh. SUV normalization method: BodyWeight Radiopharmaceutical: 10.7 mCi F-18 FDG (Fluorodeoxyglucose), IV. Time of imaging post radiopharmaceutical administration: 47 minutes Injection site: RIGHT AC COMPARISON: PT PET skull to thigh [id number] [id number] 09/09/2024 12:27 PM FINDINGS: Brain: Visualized brain has normal physiologic uptake. Pharynx: No abnormal uptake. Larynx: No abnormal uptake. Lungs, pleura and trachea: No abnormal uptake. Heart: Normal physiologic uptake. Mediastinal space: No abnormal uptake. Liver: No abnormal uptake. Gallbladder and biliary ducts: Cholelithiasis. Pancreas: No abnormal uptake. Spleen: Stable mild splenomegaly with multifocal calcifications. Adrenal glands: No abnormal uptake. Kidneys and ureters: Normal physiologic uptake. Stomach and bowel: New wall thickening in increased avidity of the ascending and transverse colon. Similar mild uptake in the distal esophagus, likely esophagitis. Vasculature: No abnormal uptake. Lymph nodes: New FDG avid cervical lymphadenopathy including reference right level IIB lymph node (image 47) measuring 6 mm in short axis with SUV max of 10.1, and left level 2A lymph node measuring 8 mm in short axis with SUV max of 5.7. Similar appearance of mildly avid upper abdominal and left mesenteric lymph nodes with SUV max of 3.9. Skeleton: No abnormal uptake in the visualized axial and appendicular skeleton. Soft tissues: Similar mildly avid right hilar soft tissue with SUV max of 5.3. METRICS: Mediastinal blood pool: SUV max = 2.4 Liver uptake: SUV max = 2.7 PET/PET skull to thigh [id number] [id number] IMPRESSION: 1. New FDG avid acfzy-[id number]-left cervical lymph nodes concerning for progressive disease. 2. New wall thickening in increased avidity of the ascending and transverse colon, most likely nonspecific colitis. 3. Ongoing low-grade uptake in the right hilum may be reactive or metastatic. 4. Similar low-grade avidity associated with upper abdominal and left mesenteric lymph nodes, may be reactive or metastatic.
== END 2025-03-22 23:59 | disposition home or self-care (01) ==
LOC: RAD 08:08 → ONCMED 08:10
PROVIDERS: PCP Nurse Practitioner; Visit Provider Internal Medicine Medical Oncology
DX: C82.18 Follicular lymphoma grade II, lymph nodes of multiple sites (principal); R93.3 Abnormal findings on diagnostic imaging of other parts of digestive tract
CPT/HCPCS: 78815; A9552

== ENCOUNTER 2025-04-03 11:26 | Oncology outpatient (recurring) (ONCR) | payer MEDICARE, OTHER, SELFPAY ==
[2025-04-03 11:50] LABS: Basophils % 0.7 %; Eosinophils # 0.1 10^3/uL (0.0-0.8); Eosinophils % 2.1 %; Hematocrit 33.3 % (37-53); Lymphocytes # 1.1 10^3/uL (0.8-4.8); Lymphocytes % 26.5 %; Mean Corpuscular HGB Conc 33.9 g/dL (30-55); Mean Corpuscular Volume 85.4 fl (82-101); Mean Platelet Volume 8.8 fL (7.4-10.4); Monocytes # 0.3 10^3/uL (0.2-0.9); Neutrophils # 2.69 10^3/uL (1.8-7.7); Neutrophils % 63.2 %; Nucleated Red Blood Cells % 0 %; Platelet Count 171 10^3/cmm (157-399); White Blood Count 4.26 10^3/uL (3.29-11.43)
[2025-04-03 12:09] LABS: Alanine Aminotransferase 9 U/L (0-41); Albumin Level 4.2 g/dL (3.5-5.2); Alkaline Phosphatase 106 U/L (40-130); Anion Gap 13.4 (5-19); Aspartate Amino Transferase 11 U/L (0-40); Blood Urea Nitrogen 13 mg/dL (8-23); Calcium 9.3 mg/dL (8.5-10.5); Carbon Dioxide 30 mmol/L (22-29); Chloride 105 mmol/L (98-107); Creatinine Clr Calc Pharmacy 105.2275; Globulin 2.5 g/dL (1.3-4.6); Glomerular Filtration Rate 96.4 mL/min (90-130); Glucose 92 mg/dL (65-115); Lactate Dehydrogenase 154 U/L (135-225); Osmolality Calculated 298 mOsm/kg (285-295); Potassium 4.4 mmol/L (3.5-5.1); Sodium 144 mmol/L (136-145); Total Bilirubin 0.4 mg/dL (0.15-1.2); Total Protein 6.7 g/dL (6.6-8.7)
== END 2025-04-22 23:59 | disposition home or self-care (01) ==
PROVIDERS: Internal Medicine; PCP Nurse Practitioner; Visit Provider Internal Medicine Medical Oncology
DX: C82.18 Follicular lymphoma grade II, lymph nodes of multiple sites (principal); M25.551 Pain in right hip; N40.1 Benign prostatic hyperplasia with lower urinary tract symptoms; R35.0 Frequency of micturition
CPT/HCPCS: 36415; 80053; 83615; 85025; 99213

== ENCOUNTER 2025-10-02 11:12 | Oncology outpatient (recurring) (ONCR) | payer MEDICARE, OTHER, SELFPAY ==
[2025-10-02 11:50] LABS: Hematocrit 38.0 % (37-53); Hemoglobin 12.40 g/dL (11.27-16.99); Mean Corpuscular HGB Conc 32.6 g/dL (30-55); Mean Corpuscular Hemoglobin 26.7 pg (27-33); Mean Corpuscular Volume 81.9 fl (82-101); Nucleated Red Blood Cells % 0 %; Platelet Count 172 10^3/cmm (157-399); Red Blood Count 4.64 10^6/uL (3.85-5.65); White Blood Count 4.60 10^3/uL (3.29-11.43)
[2025-10-02 12:04] LABS: Alanine Aminotransferase 8 U/L (0-41); Albumin Level 4.3 g/dL (3.5-5.2); Alkaline Phosphatase 145 U/L (40-130); Anion Gap 15.1 (5-19); Aspartate Amino Transferase 19 U/L (0-40); Blood Urea Nitrogen 13 mg/dL (8-23); Calcium 9.3 mg/dL (8.5-10.5); Carbon Dioxide 29 mmol/L (22-29); Chloride 102 mmol/L (98-107); Globulin 2.8 g/dL (1.3-4.6); Glucose 95 mg/dL (65-115); Osmolality Calculated 294 mOsm/kg (285-295); Potassium 4.1 mmol/L (3.5-5.1); Sodium 142 mmol/L (136-145); Total Protein 7.1 g/dL (6.6-8.7)
== END 2025-10-22 23:59 | disposition home or self-care (01) ==
PROVIDERS: Internal Medicine; PCP Nurse Practitioner; Visit Provider Internal Medicine Medical Oncology
DX: Z08 Encounter for follow-up examination after completed treatment for malignant neoplasm (principal); Z85.72 Personal history of non-Hodgkin lymphomas; M25.551 Pain in right hip; Z87.891 Personal history of nicotine dependence; R22.1 Localized swelling, mass and lump, neck
CPT/HCPCS: 36415; 80053; 83615; 85025; 99214